=== PATIENT | male | born 1955 | race Caucasian/White ===

== ENCOUNTER 2017-04-09 03:20 | Inpatient (IN) | payer OTHER, MEDICARE ==
[2017-04-09] MEDS ORDERED: ASPIRIN 81 MG TABLET, CHEWABLE PO ONE (04:09)
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
[2017-04-09] MEDS ORDERED: NITROGLYCERIN 0.4 MG/TAB 25 TAB/BOTTLE SL ONE (04:12)
[2017-04-09] MEDS ORDERED: NITROGLYCERIN 2% OINTMENT 1 GM PACKET TP ONE (04:13)
[2017-04-09] MEDS ORDERED: ACETAMINOPHEN 325 MG TABLET PO ONE (04:14)
[2017-04-09 04:35] LABS: ALANINE AMINOTRANSFERASE 47 U/L (21-72); ALBUMIN 4.1 g/dL (3.5-5.0); ALKALINE PHOSPHATASE 50 U/L (38-126); ANION GAP 14 (5-19); ASPARTATE AMINO TRANSFERASE 32 U/L (17-59); BILIRUBIN,DIRECT 0.3 mg/dL (0.0-0.4); BILIRUBIN,TOTAL 0.5 mg/dL (0.2-1.3); BLOOD UREA NITROGEN 15 mg/dL (7-20); CARBON DIOXIDE 24 mmol/L (22-30); CHLORIDE 109 mmol/L (98-107); CREATINE KINASE 80 U/L (55-170); GLUCOSE 93 mg/dL (75-110); POTASSIUM 4.3 mmol/L (3.6-5.0); SODIUM 146.7 mmol/L (137-145); TOTAL PROTEIN 7.3 g/dL (6.3-8.2)
[2017-04-09] MEDS ORDERED: MORPHINE SULFATE 10 MG/ML INJ IV ONE (04:46)
--- NOTE | 2017-04-09 04:46 | RADIOLOGY REPORT (SQ) ---
EXAM DESCRIPTION: CHEST SINGLE VIEW COMPLETED DATE/TIME: 04/09/2017 4:28 am REASON FOR STUDY: chest pain COMPARISON: None. EXAM PARAMETERS: NUMBER OF VIEWS: One view. TECHNIQUE: Single frontal radiographic view of the chest acquired. RADIATION DOSE: NA LIMITATIONS: None. FINDINGS: LUNGS AND PLEURA: No consolidation, pneumothorax or pleural effusion. Hyperlucent lungs, suggestive of emphysema. MEDIASTINUM AND HILAR STRUCTURES: No masses. Contour normal. HEART AND VASCULAR STRUCTURES: The heart is upper normal limit in size. There is no overt vascular c ongestion. BONES: No acute findings. HARDWARE: Sternotomy wires are present. IMPRESSION: No consolidation or pleural effusion. Emphysema. TECHNICAL DOCUMENTATION: JOB ID: [id number] [employer]- All Rights Reserved
[2017-04-09 04:47] LABS: CREATINE KINASE MB 0.48 ng/mL (<4.55); TROPONIN I < 0.012 ng/mL
[2017-04-09 04:58] LABS: ABSOLUTE BASOPHILS # (AUTO) 0.1 10^3/uL (0.0-0.2); ABSOLUTE EOSINOPHILS # (AUTO) 0.2 10^3/uL (0.0-0.6); ABSOLUTE LYMPHOCYTES (AUTO) 2.1 10^3/uL (0.5-4.7); ABSOLUTE MONOCYTES (AUTO) 0.8 10^3/uL (0.1-1.4); ABSOLUTE NEUT (AUTO) 3.7 10^3/uL (1.7-8.2); BASOPHILS % (AUTO) 0.9 % (0-2); EOSINOPHILS % (AUTO) 3.6 % (0-6); HEMATOCRIT 44.8 % (37.9-51.0); HEMOGLOBIN 15.6 g/dL (13.5-17.0); LYMPHOCYTES % (AUTO) 30.1 % (13-45); MEAN CORPUSCULAR HEMOGLOBIN 32.9 pg (27.0-33.4); MEAN CORPUSCULAR HGB CONC 34.8 g/dL (32.0-36.0); MEAN CORPUSCULAR VOLUME 95 fl (80-97); MONOCYTES % (AUTO) 11.2 % (3-13); PLATELET COUNT 202 10^3/uL (150-450); RED BLOOD COUNT 4.74 10^6/uL (4.35-5.55); RED CELL DISTRIBUTION WIDTH 13.4 % (11.5-14.0); SEGMENTED NEUTROPHILS % (AUTO) 54.2 % (42-78); TOTAL CELLS COUNTED % (AUTO) 100 %; WHITE BLOOD COUNT 6.9 10^3/uL (4.0-10.5)
[2017-04-09] MEDS ORDERED: LIDOCAINE 2% VISCOUS SOLN 20 ML UDCUP PO ONE (05:22)
[2017-04-09] MEDS ORDERED: MAG HYDROX/AL HYDROX/SIMETH SUSP 30 ML UDCUP PO ONE (05:22)
[2017-04-09] MEDS ORDERED: LANSOPRAZOLE 15 MG TAB.RAP.DR PO ONE ×2 (06:14→13:00)
[2017-04-09] MEDS ORDERED: ONDANSETRON HCL INJ/PF 4 MG/2 ML SDV IV PRN (06:14)
[2017-04-09] MEDS ORDERED: LACTULOSE SYRUP 20 GM/30 ML UDCUP PO ONE (06:21)
[2017-04-09] MEDS: MORPHINE SULFATE 10 MG/ML INJ IV PRN ×4 (06:59→21:36)
--- NOTE | 2017-04-09 07:52 | PDOC H&P ---
History of Present Illness Admission Date/PCP: 04/09/17 05:28 ALLISON RIVERA MD History of Present Illness: ADRIAN ARNOLD is a 61 year old male with past medical history of coronary artery disease, hypertension, hyperlipidemia, hepatitis C, fatty liver disease, who reported to the emergency department with complaints of chest pain. He reported that he was having what felt like heartburn reminiscent of his prior LA last night from 1700 to approximately 2200. Patient reports he then took half an Ambien and was able to sleep, but was awoken from sleep by the same discomfort. He reports they checked his blood pressure and found it was elevated. He also reports some chest tightness over the last several days that goes through to his back and axilla. He reports that he did undergo a MRI of his left upper extremity which revealed pinched nerves. Patient reports that his pain was improved with a GI cocktail. He also reports it was improved with nitroglycerin. Patient denies any associated shortness of breath, diaphoresis, nausea, vomiting. Patient reports that he was previously on morphine as an outpatient for his chronic discomfort. He reports he is currently not taking any medication for this. He is referred to hospital service for evaluation of his chest pain Patient does not know his medications and did not bring a list. Due to the emergent nature of his condition, we will reconcile these at a later time. Past Medical History Cardiac Medical History: Reports: Coronary Artery Disease, Myocardial Infarction , Hyperlipidema, Hypertension Pulmonary Medical History: Reports: Chronic Obstructive Pulmonary Disease (COPD) EENT Medical History: Reports: Eyes - Glaucoma Neurological Medical History: Reports: Ischemic CVA GI Medical History: Reports: None Psychiatric Medical History: Reports: None Infectious Medical History: Reports: Hepatitis C Past Surgical History Past Surgical History: Reports: Coronary Artery Bypass Graft, Other - Back surgery Social History Lives with: Alone Smoking Status: Former Smoker Frequency of Alcohol Use: Rare Hx Recreational Drug Use: No Hx Prescription Drug Abuse: No - Advance Directive Resuscitation Status: Do Not Resuscitate Surrogate healthcare decision maker:: Keena Caldera, sister Family History Family History: CAD, CVA, DM, Hypertension, Malignancy, Other - Renal failure Parental Family History Reviewed: Yes Children Family History Reviewed: Yes Sibling(s) Family History Reviewed.: Yes Medication/Allergy Allergies/Adverse Reactions: No Known Allergies Allergy (Unverified 04/09/17 06:26) Review of Systems Constitutional: PRESENT: headache(s). ABSENT: chills, fever(s), weight gain, weight loss Eyes: PRESENT: visual disturbances Ears: ABSENT: hearing changes Cardiovascular: PRESENT: as per HPI, chest pain. ABSENT: dyspnea on exertion, edema, orthropnea, palpitations Respiratory: ABSENT: cough, dyspnea, hemoptysis, sputum, other Gastrointestinal: PRESENT: abdominal pain, bloating, constipation, nausea. ABSENT: diarrhea, hematemesis, hematochezia, melena, vomiting Genitourinary: PRESENT: nocturia. ABSENT: difficulty urinating, dysuria, hematuria Musculoskeletal: ABSENT: joint swelling Integumentary: ABSENT: rash, wounds Neurological: ABSENT: abnormal gait, abnormal speech, confusion, dizziness, focal weakness, syncope Psychiatric: ABSENT: anxiety, depression, homidical ideation, suicidal ideation Endocrine: ABSENT: cold intolerance, heat intolerance, polydipsia, polyuria Hematologic/Lymphatic: ABSENT: easy bleeding, easy bruising Physical Exam Vital Signs: Temp Pulse Resp BP Pulse Ox 97.7 F 68 20 164/105 H 97 04/09/17 03:41 04/09/17 03:41 04/09/17 06:01 04/09/17 06:01 04/09/17 06:01 General appearance: PRESENT: no acute distress, well-developed, well-nourished Head exam: PRESENT: atraumatic, normocephalic Eye exam: PRESENT: conjunctiva pink, EOMI, PERRLA. ABSENT: scleral icterus Ear exam: PRESENT: normal external ear exam Mouth exam: PRESENT: moist, tongue midline Neck exam: ABSENT: JVD, lymphadenopathy, thyromegaly, tracheal deviation Respiratory exam: PRESENT: chest wall tenderness, clear to auscultation renaldo, prolonged expiratory phas, symmetrical, unlabored. ABSENT: rales, rhonchi, wheezes Cardiovascular exam: PRESENT: RRR, +S1, +S2. ABSENT: diastolic murmur, gallop, rubs, systolic murmur Pulses: PRESENT: normal dorsalis pedis pul Vascular exam: PRESENT: normal capillary refill GI/Abdominal exam: PRESENT: hypoactive bowel sounds, soft. ABSENT: distended, firm, guarding, mass, Topete's sign, organolmegaly, rebound, tenderness Rectal exam: PRESENT: deferred Extremities exam: PRESENT: clubbing, full ROM, pedal edema - Trace to mid reyez. ABSENT: calf tenderness Neurological exam: PRESENT: alert, awake, oriented to person, oriented to place , oriented to time, oriented to situation, CN II-XII grossly intact. ABSENT: motor sensory deficit Psychiatric exam: PRESENT: depressed, flat affect. ABSENT: homicidal ideation, suicidal ideation Skin exam: PRESENT: dry, intact, warm. ABSENT: cyanosis, rash Results Laboratory Results: 04/09/17 04/09/17 04/09/17 03:30 03:30 03:30 WBC 6.9 Hgb 15.6 BUN 15 Creatinine 0.98 Troponin I < 0.012 EKG Comments: NSR Impressions: Chest X-Ray 04/09/17 04:09 IMPRESSION: No consolidation or pleural effusion. Emphysema. Status: Imported from PACS Assessment & Plan - Diagnosis (1) Chest pain Qualifiers: Chest pain type: unspecified Qualified Code(s): R07.9 - Chest pain, unspecified Is this a current diagnosis for this admission?: Yes Plan: Observe patient on telemetry for possible AMI. Most likely, this is indigestion and will also start patient on Prevacid. Place patient on morphine , nitroglycerin, aspirin, metoprolol, lisinopril, Lipitor, and oxygen. Obtain stress test. (2) Hypertension Qualifiers: Hypertension type: essential hypertension Qualified Code(s): I10 - Essential (primary) hypertension Is this a current diagnosis for this admission?: Yes Plan: Place patient on lisinopril and metoprolol (3) Musculoskeletal chest pain Is this a current diagnosis for this admission?: Yes Plan: Patient has chronic left upper extremity pain which has been progressive over the last year and a half. Patient has had an MRI as an outpatient he reports, and reports that he has nerve impingement in his neck. He is strongly advised to have this follow-up up on as an outpatient and as well as to pursue pain management. Will initiate patient on Neurontin (4) COPD (chronic obstructive pulmonary disease) Qualifiers: COPD type: emphysema Emphysema type: unspecified Qualified Code(s): J43.9 - Emphysema, unspecified Is this a current diagnosis for this admission?: Yes Plan: Continue to monitor - Time Time Spent: 50 to 70 Minutes Medications reviewed and adjusted accordingly: Yes Anticipated discharge: Home Within: within 48 hours - Inpatient Certification Based on my medical assessment, after consideration of the patient's comorbidities, presenting symptoms, or acuity I expect that the services needed warrant INPATIENT care.: No I certify that my determination is in accordance with my understanding of Medicare's requirements for reasonable and necessary INPATIENT services [42 CFR 412.3e].: No Post Hospital Care: D/C Brood Station Manager Documentation
[2017-04-09 07:54] LABS: CREATINE KINASE MB 0.52 ng/mL (<4.55)
[2017-04-09 07:59] LABS: TROPONIN I < 0.012 ng/mL
--- NOTE | 2017-04-09 08:17 | EKG REPORT ---
SEVERITY:- ABNORMAL ECG - SINUS RHYTHM PROBABLE LEFT ATRIAL ABNORMALITY CONSIDER ANTEROSEPTAL INFARCT BORDERLINE T ABNORMALITIES, INFERIOR LEADS : Confirmed by: Marcell Marinelli MD 09-Apr-2017 08:16:29
[2017-04-09] MEDS ORDERED: GABAPENTIN 300 MG CAPSULE PO SCH (10:00)
[2017-04-09] MEDS ORDERED: ASPIRIN 325 MG TABLET, ENT COATED PO SCH (10:00)
[2017-04-09] MEDS ORDERED: LISINOPRIL 10 MG TABLET PO SCH (10:00)
[2017-04-09] MEDS ORDERED: METOPROLOL SUCCINATE 25 MG TAB.SR.24H PO SCH (10:00)
[2017-04-09] MEDS: DOCUSATE SODIUM 100 MG CAPSULE PO SCH ×2 (10:02→17:18)
[2017-04-09] MEDS ORDERED: NITROGLYCERIN 2% OINTMENT 1 GM PACKET TP SCH (12:00)
[2017-04-09] MEDS ORDERED: HYDROCORTISONE ACETATE 25 MG SUPP.RECT PR PRN (13:01)
[2017-04-09] MEDS ORDERED: (PENDING PHARMACY ID) (Zolpidem Tartrate [Ambien] 10 MG) PO PRN (13:01)
[2017-04-09 13:52] LABS: CREATINE KINASE MB 0.78 ng/mL (<4.55)
[2017-04-09 14:16] LABS: TROPONIN I < 0.012 ng/mL
[2017-04-09] MEDS ORDERED: ZOLPIDEM TARTRATE 5 MG TABLET PO PRN (14:23)
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
[2017-04-09] MEDS ORDERED: ISOSORBIDE MONONITRATE 30 MG TAB.ER.24H PO ONE (15:00)
[2017-04-09] MEDS: POLYVINYL ALCOHOL 1.4% OPH SOLN 15 ML OU SCH ×3 (17:18→21:31)
[2017-04-09] MEDS: LANSOPRAZOLE 15 MG TAB.RAP.DR PO SCH (17:19)
[2017-04-09 20:25] LABS: CREATINE KINASE MB 1.07 ng/mL (<4.55)
[2017-04-09 20:28] LABS: TROPONIN I < 0.012 ng/mL
[2017-04-09] MEDS: DORZOLAMIDE HCL 2%/TIMOLOL MALEAT 0.5% OPH SOLN 10 ML OS SCH (21:32)
[2017-04-09] MEDS: GABAPENTIN 300 MG CAPSULE PO SCH (21:34)
[2017-04-09] MEDS: ATORVASTATIN CALCIUM 20 MG TABLET PO SCH (21:34)
[2017-04-09] MEDS: LISINOPRIL 10 MG TABLET PO SCH (21:35)
[2017-04-09] MEDS: HYDROXYZINE HCL 10 MG TABLET PO SCH (21:47)
[2017-04-09] MEDS: CARBOXYMETHYLCELLULOSE SOD 0.5% 0.4 ML DROPERETTE OU SCH (21:47)
[2017-04-09] MEDS ORDERED: ATORVASTATIN CALCIUM 80 MG TABLET PO SCH (22:00)
[2017-04-09] MEDS ORDERED: ATORVASTATIN CALCIUM 40 MG TABLET PO SCH (22:00)
[2017-04-10] MEDS ORDERED: ACETAMINOPHEN 325 MG TABLET PO PRN (03:39)
[2017-04-10] MEDS ORDERED: KETOROLAC TROMETHAMINE INJ/PF 30 MG/1 ML SDV IV ONE (03:45)
[2017-04-10] MEDS ORDERED: NORMAL SALINE 1000 ML 1,000 ML IV ONE ×2 (03:45→06:15)
[2017-04-10] MEDS: LANSOPRAZOLE 15 MG TAB.RAP.DR PO SCH ×2 (05:12→16:58)
[2017-04-10] MEDS: GABAPENTIN 300 MG CAPSULE PO SCH ×3 (05:12→21:19)
[2017-04-10 07:52] LABS: CHOLESTEROL 82.17 mg/dL (0-200); TRIGLYCERIDES 174 mg/dL (<150)
[2017-04-10 08:03] LABS: DIRECT LDL 40 mg/dL (<100)
[2017-04-10 08:06] LABS: VLDL CHOLESTEROL 34.8 mg/dL (10-31)
[2017-04-10] MEDS ORDERED: (PENDING PHARMACY ID) (Omega-3 Fatty Acids/Fish Oil [Fish Oil 1,000 Mg Capsule] 1,000 MG) PO SCH (10:00)
[2017-04-10] MEDS: ASPIRIN 81 MG TABLET, CHEWABLE PO SCH (10:40)
[2017-04-10] MEDS: DOCUSATE SODIUM 100 MG CAPSULE PO SCH ×2 (10:40→16:42)
[2017-04-10] MEDS: POLYVINYL ALCOHOL 1.4% OPH SOLN 15 ML OU SCH ×4 (10:40→21:19)
[2017-04-10] MEDS: OMEGA-3 ACID ETHYL ESTERS 1 GM CAPSULE PO SCH (10:41)
[2017-04-10] MEDS: HYDROXYZINE HCL 10 MG TABLET PO SCH ×2 (10:41→21:19)
[2017-04-10] MEDS: MULTIVITAMIN TABLET PO SCH (10:41)
[2017-04-10] MEDS: DORZOLAMIDE HCL 2%/TIMOLOL MALEAT 0.5% OPH SOLN 10 ML OS SCH ×2 (10:42→21:20)
[2017-04-10] MEDS: ISOSORBIDE MONONITRATE 30 MG TAB.ER.24H PO SCH (10:45)
[2017-04-10] MEDS: LISINOPRIL 10 MG TABLET PO SCH ×2 (10:45→21:20)
[2017-04-10] MEDS: CARBOXYMETHYLCELLULOSE SOD 0.5% 0.4 ML DROPERETTE OU SCH (10:45)
[2017-04-10] MEDS: METOPROLOL SUCCINATE 50 MG TAB.SR.24H PO SCH (10:45)
[2017-04-10] MEDS ORDERED: REGADENOSON INJ 0.4 MG/5 ML DISP.SYRIN IV ONE (14:14)
[2017-04-10] MEDS ORDERED: NORMAL SALINE 1000 ML 1,000 ML IV PRN (15:07)
[2017-04-10] MEDS ORDERED: ONDANSETRON HCL INJ/PF 4 MG/2 ML SDV IV PRN (15:30)
--- NOTE | 2017-04-10 16:04 | PROGRESS NOTE E ---
Progress Note NAME: ADRIAN ARNOLD : 1955 AGE: 61Y DATE: 04/10/2017 ROOM: 529 SUBJECTIVE: The patient is currently lying in bed, apparently overnight the patient had developed diarrhea and subsequent hypotension. The patient did receive a 2L bolus overnight and did have some improvement in his blood pressure, however, his chemistries were pretty unremarkable. The patient states that he has not felt very well since [place] and that this is his first bout of diarrhea. The patient denies any sick contacts as well. The patient has had no reported episodes of vomiting. No shortness of breath, dizziness, chest pain. No fevers, chills. The patient has been afebrile. His blood pressures have been on the soft side and the patient does not voice any other concerns at this time. REVIEW OF SYSTEMS: The rest of the review of systems is negative. MEDICATIONS: Have been reviewed. OBJECTIVE: GENERAL: The patient is a 61-year-old male who is awake, alert. He is oriented to person, time, place, and situation. He does not appear to be in any acute distress. VITAL SIGNS: Temperature is 98.2, pulse 65, respirations 14, blood pressure was 90/66, oxygen saturation 94% on room air. SKIN: Warm and dry. No rash. He is not diaphoretic. HEENT: Pupils, equal, round and reactive to light and accommodation. Conjunctivae are pink. NECK: No JVP. CARDIOVASCULAR: Heart is regular. There is no murmur or rub. CHEST: Clear, symmetrical, unlabored. ABDOMEN: Soft, nontender, nondistended. BACK: No CVA tenderness, sacral edema. EXTREMITIES: No clubbing, cyanosis, or edema. PSYCHIATRIC: Appropriate affect, pleasant mood. DIAGNOSTICS: Lab values are as follows; chemistry obtained on 04/10/2017; triglycerides of 174, cholesterol is 82, LDL 40, VLDL was 34, HDL is 21. CK 77, CK-MB is 1.07, troponin is 0.012. IMPRESSION AND PLAN: 1. DIARRHEA. Will obtain stool studies and also start the patient on probiotic therapy. Additionally encourage a yogurt with each meal and will follow. 2. HYPOTENSION. Most likely secondary to #1. Will replace volume and repeat chemistries in the a.m. and follow. 3. DYSLIPIDEMIA. Will continue her medication. 4. HYPERTRIGLYCERIDEMIA. 5. CHRONIC PAIN SECONDARY TO TRAUMATIC INJURY. Will continue current pain regimen. 6. CHEST PAIN. The patient has had no further reoccurrence. The patient did have a stress test which did reveal a fixed defect consistent with scarring from previous [place]. The patient does have a known CAD. 7. HYPERTENSION. The patient is actually currently hypotensive. 8. CHRONIC OBSTRUCTIVE PULMONARY DISEASE. Will continue home medication. 9. HEPATITIS C. The patient does not need the treatment. CODE STATUS: The patient is a DNR/DNI. DISPOSITION: Depending on the patient's symptomatology and diagnostic findings will reevaluate in the a.m. for discharge. TIME SPENT: On this follow up, including assessment and plan, physical examination, patient education is 25 minutes. DICTATING PHYSICIAN: HENRIETTA ORTA NP [id number] PHY#: [id number] ID: [id number] JOB#: [id number] ACCT: [id number] cc: >
[2017-04-10] MEDS: LACTOBACILLUS ACIDOPHILUS 250 MG TAB PO SCH (16:58)
[2017-04-10] MEDS: 1/2 NORMAL SALINE 1,000 ML IV PRN (16:58)
[2017-04-10] MEDS: ATORVASTATIN CALCIUM 20 MG TABLET PO SCH (21:19)
[2017-04-10] MEDS: KETOROLAC TROMETHAMINE INJ/PF 30 MG/1 ML SDV IV PRN (21:21)
[2017-04-11 05:27] LABS: HEMATOCRIT 41.8 % (37.9-51.0); HEMOGLOBIN 14.6 g/dL (13.5-17.0); MEAN CORPUSCULAR HEMOGLOBIN 32.7 pg (27.0-33.4); MEAN CORPUSCULAR HGB CONC 34.9 g/dL (32.0-36.0); MEAN CORPUSCULAR VOLUME 94 fl (80-97); PLATELET COUNT 160 10^3/uL (150-450); RED BLOOD COUNT 4.46 10^6/uL (4.35-5.55); RED CELL DISTRIBUTION WIDTH 13.1 % (11.5-14.0); WHITE BLOOD COUNT 6.8 10^3/uL (4.0-10.5)
[2017-04-11] MEDS: LANSOPRAZOLE 15 MG TAB.RAP.DR PO SCH ×2 (05:41→16:17)
[2017-04-11] MEDS: GABAPENTIN 300 MG CAPSULE PO SCH ×3 (05:41→21:01)
[2017-04-11] MEDS: KETOROLAC TROMETHAMINE INJ/PF 30 MG/1 ML SDV IV PRN ×3 (05:41→21:15)
[2017-04-11 05:55] LABS: ANION GAP 10 (5-19); BLOOD UREA NITROGEN 15 mg/dL (7-20); CALCIUM 8.9 mg/dL (8.4-10.2); CARBON DIOXIDE 23 mmol/L (22-30); CHLORIDE 110 mmol/L (98-107); GLUCOSE 92 mg/dL (75-110); MAGNESIUM 1.9 mg/dL (1.6-2.3); POTASSIUM 4.4 mmol/L (3.6-5.0); SODIUM 143.4 mmol/L (137-145)
[2017-04-11] MEDS: 1/2 NORMAL SALINE 1,000 ML IV PRN (09:34)
[2017-04-11] MEDS: DOCUSATE SODIUM 100 MG CAPSULE PO SCH ×2 (09:34→18:57)
[2017-04-11] MEDS: OMEGA-3 ACID ETHYL ESTERS 1 GM CAPSULE PO SCH (09:34)
[2017-04-11] MEDS: ISOSORBIDE MONONITRATE 30 MG TAB.ER.24H PO SCH (09:34)
[2017-04-11] MEDS: LACTOBACILLUS ACIDOPHILUS 250 MG TAB PO SCH ×2 (09:35→18:58)
[2017-04-11] MEDS: MULTIVITAMIN TABLET PO SCH (09:35)
[2017-04-11] MEDS: ASPIRIN 81 MG TABLET, CHEWABLE PO SCH (09:35)
[2017-04-11] MEDS: DORZOLAMIDE HCL 2%/TIMOLOL MALEAT 0.5% OPH SOLN 10 ML OS SCH ×2 (09:36→21:01)
[2017-04-11] MEDS: HYDROXYZINE HCL 10 MG TABLET PO SCH ×2 (09:36→21:03)
[2017-04-11] MEDS: POLYVINYL ALCOHOL 1.4% OPH SOLN 15 ML OU SCH ×4 (09:36→23:44)
[2017-04-11] MEDS: METOPROLOL SUCCINATE 50 MG TAB.SR.24H PO SCH (09:47)
[2017-04-11] MEDS: LISINOPRIL 10 MG TABLET PO SCH ×2 (12:53→21:01)
--- NOTE | 2017-04-11 14:58 | RADIOLOGY REPORT (SQ) ---
EXAM DESCRIPTION: KUB/ABDOMEN (SINGLE VIEW) COMPLETED DATE/TIME: 04/11/2017 2:34 pm REASON FOR STUDY: r/o obstruction COMPARISON: None. NUMBER OF VIEWS: One view. TECHNIQUE: Supine radiographic image of the abdomen acquired. LIMITATIONS: None. FINDINGS: BOWEL GAS PATTERN: Relative paucity of bowel gas. No dilated loops. Large amount of stoo l throughout the colon. CALCIFICATIONS: No suspicious calcifications. SOFT TISSUES: No gross mass or suggestion of organomegaly. HARDWARE: None in the abdomen. BONES: No acute fracture. No worrisome bone lesions. OTHER: No other significant finding. IMPRESSION: NO RADIOGRAPHIC EVIDENCE FOR ACUTE ABDOMINAL DISEASE. LARGE AMOUNT OF STOOL THROUGHOUT THE COLON. TECHNICAL DOCUMENTATION: JOB ID: [id number] [employer]- All Rights Reserved
--- NOTE | 2017-04-11 15:38 | PDOC PROGRESS REPORT ---
Subjective Progress Note for:: 04/11/17 Subjective:: Patient seen in the chair denies any nausea vomiting but states he has only had one bowel movement in the last 2 months. Abdomen is quite distended and firm denies any chest pain, shortness of breath, diaphoresis. Reason For Visit: CHEST PAIN Physical Exam Vital Signs: Temp Pulse Resp BP Pulse Ox 97.8 F 86 17 152/89 H 98 04/11/17 11:36 04/11/17 14:00 04/11/17 11:36 04/11/17 11:36 04/11/17 11:36 Intake & Output 04/10/17 04/11/17 04/12/17 06:59 06:59 06:59 Intake Total 1010 839 Output Total 650 Balance 1010 189 Weight 75.5 kg General appearance: PRESENT: no acute distress, well-developed, well-nourished Head exam: PRESENT: atraumatic, normocephalic Eye exam: PRESENT: PERRLA Ear exam: PRESENT: normal external ear exam Mouth exam: PRESENT: moist, tongue midline Neck exam: ABSENT: carotid bruit, JVD, lymphadenopathy, thyromegaly Respiratory exam: PRESENT: clear to auscultation renaldo. ABSENT: rales, rhonchi, wheezes Cardiovascular exam: PRESENT: RRR. ABSENT: diastolic murmur, rubs, systolic murmur Pulses: PRESENT: normal dorsalis pedis pul GI/Abdominal exam: PRESENT: diminished bowel sounds, distended, tenderness Rectal exam: PRESENT: deferred Extremities exam: PRESENT: full ROM. ABSENT: calf tenderness, clubbing, pedal edema Neurological exam: PRESENT: alert, awake, oriented to person, oriented to place , oriented to time, oriented to situation, CN II-XII grossly intact. ABSENT: motor sensory deficit Psychiatric exam: PRESENT: appropriate affect, normal mood. ABSENT: homicidal ideation, suicidal ideation Skin exam: PRESENT: dry, intact, warm. ABSENT: cyanosis, rash Results Laboratory Results: 04/11/17 04:25 04/11/17 04:25 04/11/17 04/11/17 04:25 04:25 WBC 6.8 RBC 4.46 Hgb 14.6 Hct 41.8 MCV 94 MCH 32.7 MCHC 34.9 RDW 13.1 Plt Count 160 Sodium 143.4 Potassium 4.4 Chloride 110 H Carbon Dioxide 23 Anion Gap 10 BUN 15 Creatinine 1.01 Est GFR ( Amer) > 60 Est GFR (Non-Af Amer) > 60 Glucose 92 Calcium 8.9 Magnesium 1.9 04/09/17 04/09/17 04/09/17 06:30 06:30 07:30 Creatine Kinase 77 CK-MB (CK-2) 0.52 Troponin I < 0.012 Cancelled 04/09/17 04/09/17 12:45 19:36 Creatine Kinase CK-MB (CK-2) 0.78 1.07 Troponin I < 0.012 < 0.012 Impressions: Chest X-Ray 04/09/17 04:09 IMPRESSION: No consolidation or pleural effusion. Emphysema. KUB X-Ray 04/11/17 00:00 IMPRESSION: NO RADIOGRAPHIC EVIDENCE FOR ACUTE ABDOMINAL DISEASE. LARGE AMOUNT OF STOOL THROUGHOUT THE COLON. Assessment & Plan - Diagnosis (1) Abdominal pain in male Is this a current diagnosis for this admission?: Yes Plan: Obtain a KUB to rule out bowel obstruction with hypoactive bowel sounds abdominal distention. Patient had nausea without vomiting yesterday. I will downgrade his diet to clear liquids for now. KUB came back positive for large amount of stool. Patient was given 1 bottle of magnesium citrate now continue clear liquids until patient has good results with bowel movements. Change in patient's status. (2) Constipation Qualifiers: Constipation type: unspecified constipation type Qualified Code(s): K59.00 - Constipation, unspecified Is this a current diagnosis for this admission?: Yes Plan: Hold discharge for now. Plan bowel regimen per above. Monitor in a.m. if patient has good results with bowel movements consider discharge home tomorrow.
[2017-04-11] MEDS ORDERED: MAGNESIUM CITRATE 296 ML BOTTLE PO ONE (16:00)
[2017-04-11] MEDS: ATORVASTATIN CALCIUM 20 MG TABLET PO SCH (21:01)
[2017-04-12] MEDS: GABAPENTIN 300 MG CAPSULE PO SCH ×2 (05:51→14:08)
[2017-04-12] MEDS: LANSOPRAZOLE 15 MG TAB.RAP.DR PO SCH (05:51)
[2017-04-12] MEDS: KETOROLAC TROMETHAMINE INJ/PF 30 MG/1 ML SDV IV PRN (05:51)
[2017-04-12] MEDS: LACTOBACILLUS ACIDOPHILUS 250 MG TAB PO SCH (09:50)
[2017-04-12] MEDS: ISOSORBIDE MONONITRATE 30 MG TAB.ER.24H PO SCH (09:50)
[2017-04-12] MEDS: OMEGA-3 ACID ETHYL ESTERS 1 GM CAPSULE PO SCH (09:50)
[2017-04-12] MEDS: ASPIRIN 81 MG TABLET, CHEWABLE PO SCH (09:50)
[2017-04-12] MEDS: MULTIVITAMIN TABLET PO SCH (09:50)
[2017-04-12] MEDS: HYDROXYZINE HCL 10 MG TABLET PO SCH (09:50)
[2017-04-12] MEDS: METOPROLOL SUCCINATE 50 MG TAB.SR.24H PO SCH (09:50)
[2017-04-12] MEDS: POLYVINYL ALCOHOL 1.4% OPH SOLN 15 ML OU SCH ×2 (09:50→14:09)
[2017-04-12] MEDS: DORZOLAMIDE HCL 2%/TIMOLOL MALEAT 0.5% OPH SOLN 10 ML OS SCH (09:50)
[2017-04-12] MEDS: DOCUSATE SODIUM 100 MG CAPSULE PO SCH (09:50)
--- NOTE | 2017-04-12 12:08 | PDOC DISCHARGE SUMMARY ---
General - Admit/Disc Date/PCP Admission Date/Primary Care Provider: 04/11/17 15:22 ALLISON RIVERA MD Discharge Date: 04/12/17 - Discharge Diagnosis (1) Abdominal pain in male Is this a current diagnosis for this admission?: Yes (2) Constipation Is this a current diagnosis for this admission?: Yes (3) COPD (chronic obstructive pulmonary disease) Is this a current diagnosis for this admission?: Yes (4) Hypertension Is this a current diagnosis for this admission?: Yes (5) Musculoskeletal chest pain Is this a current diagnosis for this admission?: Yes (6) Chest pain Is this a current diagnosis for this admission?: Yes Summary: Negative stress test negative troponins patient denies having any further chest pain or episodes. He was placed on a proton pump inhibitor with good results. We did have to monitor his abdomen KUB was negative for acute abdomen or small bowel obstruction - Additional Information Resuscitation Status: Do Not Resuscitate Discharge Diet: As Tolerated Discharge Activity: Activity As Tolerated Home Medications: Hydrocortisone Acetate [Anusol Hc 25 mg Supp.rect] 25 mg VT DAILYP PRN 04/09/17 Hydroxyzine HCl [Atarax 10 mg Tablet] 10 mg PO Q12 04/09/17 Isosorbide Mononitrate [Isosorbide Mononitrate ER] 30 mg PO DAILY 04/09/17 Metoprolol Succinate [Toprol XL 100 mg Tablet] 50 mg PO DAILY 04/09/17 Multivitamin [Daily Multiple Vitamin] 1 tab PO DAILY 04/09/17 [place]-3 Fatty Acids/Fish Oil [Fish Oil 1,000 mg Capsule] 1,000 mg PO DAILY 04/09 Aspirin [Aspirin 81 mg Chewable Tablet] 81 mg PO DAILY #30 tab 04/12/17 Atorvastatin Calcium [Lipitor 40 mg Tablet] 20 mg PO QHS #30 04/12/17 Dextran 70/Hypromellose [Artificial Tears Drops] 1 drop OU QID #1 bottle Docusate Sodium [Colace 100 mg Capsule] 100 mg PO BID #60 capsule 04/12/17 Dorzolamide HCl/Timolol Maleat [Cosopt Oph Soln 10 ml] 1 drop OS Q12 #1 bot 06/28 Lisinopril [Prinivil 10 mg Tablet] 20 mg PO Q12 #30 tablet 12/02/17 Polyethylene Glycol 3350 [Miralax Powder 17 gm/Packet] 1 packet PO DAILY #1 pkg 04/12/17 History of Present Illness Patient complains of: Chest pain History of Present Illness: ADRIAN ARNOLD is a 61 year old male admitted with chest pain. Past medical history includes coronary artery disease hypertension, dyslipidemia, otitis C, fatty liver disease, patient had a normal stress test and a normal troponins. Patient also complaining of abdominal distention with his nausea. KUB was obtained to rule out mass or malignancy however it revealed large amounts of stool that he was given a bottle of magnesium Site-[employer] stool softener with very good results. Patient was medically necessary to go home with a GI consult to have a colonoscopy evaluation of his constipation. Physical Exam Vital Signs: Temp Pulse Resp BP Pulse Ox 98.4 F 78 18 98/63 L 94 04/12/17 08:07 04/12/17 08:07 04/12/17 08:07 04/12/17 08:07 04/12/17 08:07 Intake & Output 04/11/17 04/12/17 04/13/17 06:59 06:59 06:59 Intake Total 4035 Output Total 1500 Balance 2535 Weight 79.8 kg General appearance: PRESENT: no acute distress, well-developed, well-nourished Head exam: PRESENT: atraumatic, normocephalic Eye exam: PRESENT: conjunctiva pink, EOMI, PERRLA. ABSENT: scleral icterus Ear exam: PRESENT: normal external ear exam Mouth exam: PRESENT: moist, tongue midline Neck exam: ABSENT: carotid bruit, JVD, lymphadenopathy, thyromegaly Respiratory exam: PRESENT: clear to auscultation renaldo. ABSENT: rales, rhonchi, wheezes Cardiovascular exam: PRESENT: RRR. ABSENT: diastolic murmur, rubs, systolic murmur Pulses: PRESENT: normal dorsalis pedis pul Vascular exam: PRESENT: normal capillary refill GI/Abdominal exam: PRESENT: normal bowel sounds, soft. ABSENT: distended, guarding, mass, organolmegaly, rebound, tenderness Rectal exam: PRESENT: deferred Extremities exam: PRESENT: full ROM. ABSENT: calf tenderness, clubbing, pedal edema Neurological exam: PRESENT: alert, awake, oriented to person, oriented to place , oriented to time, oriented to situation, CN II-XII grossly intact. ABSENT: motor sensory deficit Psychiatric exam: PRESENT: appropriate affect, normal mood. ABSENT: homicidal ideation, suicidal ideation Skin exam: PRESENT: dry, intact, warm. ABSENT: cyanosis, rash Results Impressions: Chest X-Ray 04/09/17 04:09 IMPRESSION: No consolidation or pleural effusion. Emphysema. KUB X-Ray 04/11/17 00:00 IMPRESSION: NO RADIOGRAPHIC EVIDENCE FOR ACUTE ABDOMINAL DISEASE. LARGE AMOUNT OF STOOL THROUGHOUT THE COLON. Plan Time Spent: Less than 30 Minutes - Plan follow-up with primary care and gastroenterology outpatient. He may also follow-up with cardiology as necessary
[2017-04-12 12:16] VITALS: BP 128/89
[2017-04-12] MEDS: LISINOPRIL 10 MG TABLET PO SCH (12:30)
--- NOTE | 2017-04-12 15:38 | DRAGON STRESS TEST REPORT ---
Intravenous Lexiscan Cardiolite stress test using single photon emmision computerized tomography. Date of procedure: 04/10/2017. Ordering Provider: Dr. Mac. Patient's status: In Patient Indication: Chest pain, in a patient with known coronary artery disease, and history of three-vessel coronary artery bypass graft surgery. And history of old [place]. Coronary risk factors: Age, hypertension, dyslipidemia, and family history of coronary artery disease. Note due to severe pain and unable to tolerate lifting his left arm hence the scan was done with the left arm by the side. Resting EKG: Sinus Rhythm. Nonspecific T changes diffusely Stress EKG:[ No changes of ischemia. The patient had no chest pain or discomfort, and there was no arrhythmias seen. Reason for termination: Protocol. Conclusions: Normal EKG and hemodynamic response to IV Lexiscan. Nuclear data: At rest the patient was given 10.78 millicuries of technetium 99m sestamibi injected intravenously. As per protocol rest non gated SPECT images were obtained. Subsequently the patient was given intravenous Lexiscan at a dose of 0.4 mg in 5 mL intravenously, followed by flush with normal saline. Subsequently the stress dose of 33.4 millicuries of technetium 99m sestamibi was injected intravenously. As per protocol stress gated images were obtained. Nuclear interpretation: Review of images showed that there was a perfusion defect involving the intraventricular septum in both the rest and stress images. This area of the interventricular septum had decreased motion contraction and thickening the gated study. Hence this is consistent with old myocardial infarction. The rest of the segments of the myocardium had normal perfusion at rest, and normal perfusion post stress with IV Lexiscan. The rest of the segments of the myocardium had normal motion, contraction, and thickening by gated study. T. I D. ratio was normal at 0.87. Computer read rest, and stress left ventricular ejection fraction were 64 %, and 64 %, respectively. Conclusion: 1. There is no scintigraphic evidence of Lexiscan induced myocardial ischemia. 2. There is scintigraphic evidence of myocardial infarction/scar involving the interventricular septum. Recommendations: 1. Aggressive treatment of coronary artery disease with beta blockers, aspirin , statins and nitrates if no allergies. 2. Aggressive risk factor modification, and treating the underlying co- morbidities. [facility]
== END 2017-04-12 14:25 | disposition home or self-care (01) | DRG 392 ==
LOC: ER 03:20 → EH 05:28 → 5 12:13 → OBSVTOIN 04-11 15:22
PROVIDERS: ADMIT Family Medicine; ATTEND Family Medicine
DX: K59.00 Constipation, unspecified (principal); J43.9 Emphysema, unspecified; R07.9 Chest pain, unspecified; I10 Essential (primary) hypertension; G89.29 Other chronic pain; I25.10 Atherosclerotic heart disease of native coronary artery without angina pectoris; E78.5 Hyperlipidemia, unspecified; K76.0 Fatty (change of) liver, not elsewhere classified; Z95.1 Presence of aortocoronary bypass graft; M79.2 Neuralgia and neuritis, unspecified; E78.1 Pure hyperglyceridemia; I95.9 Hypotension, unspecified; R19.7 Diarrhea, unspecified; G58.9 Mononeuropathy, unspecified; I25.2 Old myocardial infarction; Z87.891 Personal history of nicotine dependence; Z82.49 Family history of ischemic heart disease and other diseases of the circulatory system; H40.9 Unspecified glaucoma; Z86.73 Personal history of transient ischemic attack (TIA), and cerebral infarction without residual deficits; Z86.19 Personal history of other infectious and parasitic diseases; Z66 Do not resuscitate; Z83.3 Family history of diabetes mellitus; Z80.9 Family history of malignant neoplasm, unspecified; Z87.820 Personal history of traumatic brain injury
CPT/HCPCS: 36415; 71010; 74000; 78452; 80048; 80053; 80061; 82550; 82553; 83735; 84484; 85025; 85027; 87493; 93005; 93010; 93017; 96374; 96376; 99285; A9500; G0378; J1885; J2270; J2405; J2785; J3490; J7030; Q9969

== ENCOUNTER 2017-07-22 11:38 | Emergency (ER) | payer OTHER, MEDICARE ==
--- NOTE | 2017-07-22 11:55 | ER Document Report ---
ED Cardiac - General Chief Complaint: Chest Pain > 30 Stated Complaint: CHEST PAIN Time Seen by Provider: 07/22/17 11:46 Notes: The patient is a 62-year-old male, past medical history hypertension, CAD with stents, depression, "pinched nerves", [facility] with [facility] pain. He describes the chest pain as a sharp intermittent stabbing sensation in the left side of his chest. His last stress test was about 2 months ago for similar pain and his last heart cath was 2 years ago when he had a CABG. His music artist told him that his sharp chest pain was from a pinched nerve and he frequently has this pain. He received the CT head and neck as an outpatient from the [facility] last week and just picked up the results. He has a copy of the results and shows a possible thrombus in his left carotid artery. CTA is recommended. Patient does have some mild left-sided neck pain and a dull left- sided headache that he has had for several weeks. He denies focal weakness, numbness, tingling, shortness of breath, back pain, syncope, leg swelling, hemoptysis, fevers or rash. TRAVEL OUTSIDE OF THE [place] IN LAST 30 DAYS: No - Related Data Allergies/Adverse Reactions: No Known Allergies Allergy (Unverified 04/09/17 06:26) Past Medical History - General Information source: Patient - Social History Smoking Status: Unknown if Ever Smoked Family History: CAD, CVA, DM, Hypertension, Malignancy, Other - Renal failure - Past Medical History Cardiac Medical History: Reports: Hx Coronary Artery Disease, Hx Heart Attack, Hx Hypercholesterolemia, Hx Hypertension Pulmonary Medical History: Reports: Hx COPD Renal/ Medical History: Denies: Hx Peritoneal Dialysis Psychiatric Medical History: Reports: Hx Depression Past Surgical History: Reports: Hx Cardiac Surgery - bypass, Hx Coronary Artery Bypass Graft, Other - Back surgery Review of Systems - Review of Systems Notes: REVIEW OF SYSTEMS: CONSTITUTIONAL: -fevers, -chills EENT: -eye pain, -difficulty swallowing, -nasal congestion CARDIOVASCULAR: +chest pain, -syncope. RESPIRATORY: -cough, -SOB GASTROINTESTINAL: -abdominal pain, -nausea, -vomiting, -diarrhea GENITOURINARY: -dysuria, -hematuria MUSCULOSKELETAL: -back pain, +neck pain SKIN: -rash or skin lesions. HEMATOLOGIC: -easy bruising or bleeding. LYMPHATIC: -swollen, enlarged glands. NEUROLOGICAL: -altered mental status or loss of consciousness, +headache, - neurologic symptoms PSYCHIATRIC: -anxiety, -depression. ALL OTHER SYSTEMS REVIEWED AND NEGATIVE. Physical Exam - Vital signs Vitals: Temp Pulse Resp BP Pulse Ox 97.9 F 62 17 141/102 H 98 07/22/17 14:02 07/22/17 14:02 07/22/17 14:02 07/22/17 14:02 07/22/17 14:02 - Notes Notes: PHYSICAL EXAMINATION: GENERAL: Well-appearing, well-nourished and in no acute distress. HEAD: Atraumatic, normocephalic. EYES: Pupils equal round and reactive to light, extraocular movements intact, sclera anicteric, conjunctiva are normal. ENT: nares patent, oropharynx clear without exudates. Moist mucous membranes. NECK: Normal range of motion, supple without lymphadenopathy LUNGS: Breath sounds clear to auscultation bilaterally and equal. No wheezes rales or rhonchi. HEART: Regular rate and rhythm without murmurs ABDOMEN: Soft, nontender, normoactive bowel sounds. No guarding, no rebound. No masses appreciated. EXTREMITIES: Normal range of motion, no pitting or edema. No cyanosis. NEUROLOGICAL: Cranial nerves grossly intact. Normal speech, normal gait. Normal sensory and motor exams. PSYCH: Normal mood, normal affect. SKIN: Warm, Dry, normal turgor, no rashes or lesions noted. Course - Re-evaluation Re-evalutation: Patient has sharp stabbing pain that appears neuropathic in nature. His last stress test for similar pain was 2 months ago and he was told was normal. His EKG does not show any ischemic changes and 2 sets of troponins are normal. HEART score is 3 (1 for age, 2 for risk factors). CTA was done because of an outpatient non-contrast CT shows a possible thrombus in his left carotid/IJ. CTA does not show any acute thrombi. Patient feels much better and has not had chest pain or headache. Patient commented that for this chest pain in the past , he has seen pain management and had a spinal nerve block which completely relieved his pain. Instructed patient to follow-up with his primary care physician, music artist and pain management for further evaluation and treatment. Given very strict return precautions and he understands. - Vital Signs Vital signs: Temp Pulse Resp BP Pulse Ox 97.9 F 62 17 141/102 H 98 07/22/17 14:02 07/22/17 14:02 07/22/17 14:02 07/22/17 14:02 07/22/17 14:02 - Laboratory Result Diagrams: 07/22/17 11:18 07/22/17 11:18 - Diagnostic Test Radiology reviewed: Image reviewed, Reports reviewed Radiology results interpreted by me: CXR: NAD - EKG Interpretation by Me EKG shows normal: Sinus rhythm, [place], Intervals, QRS Complexes When compared to previous EKG there are: No significant change Additional EKG results interpreted by me: No STEMI Discharge - Discharge Clinical Impression: Chest pain Qualifiers: Chest pain type: unspecified Qualified Code(s): R07.9 - Chest pain, unspecified Headache Qualifiers: Headache type: unspecified Headache chronicity pattern: chronic headache Intractability: not intractable Qualified Code(s): R51 - Headache Condition: Stable Disposition: HOME, SELF-CARE Additional Instructions: CHEST PAIN OF UNCLEAR CAUSE: The exact cause of your chest pain isn't clear. Fortunately, there is no evidence of a dangerous medical condition. Further testing may be required to find the source of the pain. Most often, we find that this pain is coming from the chest wall -- the muscles or rib joints in the chest. But chest pain can come from the lung and lung lining, the esophagus, the heart valves or heart lining, and even the stomach or gallbladder. Rest. Eat lightly until the pain is gone. We may prescribe medicine for pain and inflammation. You should call the physician immediately if the pain radiates to the shoulder, jaw or arms; if you start to run a fever or develop a cough; or if you develop shortness of breath, or other new or alarming symptoms. NORMAL EXAM AND WORKUP: At this time, your examination and workup show no significant abnormality. No significant abnormal physical findings were noted. All laboratory, EKG, and imaging (x-ray, CT scans, ultrasound) studies that were ordered show no significant abnormality. Although your examination and all studies that were ordered showed no significant abnormal finding, there are no examinations and no studies that are 100% accurate. There is always the possibility that some abnormality could exist and not be detected with physical examination or within the limits and capabilities of laboratory and other studies. You should return or follow up as you were instructed on your visit today for further evaluation if your symptoms do not resolve. CHEST WALL PAIN: Your chest pain may be coming from the chest wall. This is often caused by straining the muscles or joints in the chest during physical activity, direct trauma, coughing, or vigorous vomiting. Persons with arthritis are especially prone to this type of pain, due to inflammation of the cartilage joints near the breast bone. Occasionally, no cause can be found. Rest from strenuous physical activity. This kind of chest pain is usually made worse by movement of the chest. Depending on the symptoms, we may prescribe medicine for pain, muscle relaxation, and antiinflammatory effects. If the pain is new, and seems to be due to muscle strain, cold packs can help. Otherwise, apply gentle warmth to the painful area for 15 minutes every hour or two. You should call contact the doctor immediately if things change. Further evaluation is needed if you develop a fever or cough, if the nature of the pain changes, or if you become short of breath. ANGINA EPISODE: Your physician has diagnosed the pain you experienced as an episode of angina. Angina occurs when a portion of the heart muscle temporarily lacks oxygen. It does not cause any permanent heart damage, but serves as a warning. Hospitalization is not necessary now. Evaluation of your cardiac condition , and medical therapy for angina will be necessary. It's important you be sure to keep all appointments and take medication exactly as prescribed. Angina is usually treated with a type of "nitrate" medication. This is available as ointment, pills, or sublingual (under the tongue) tablets. Depending on your clinical situation, other medications may be added to help control angina. These may include beta blockers or calcium blockers. If episodes of angina are occurring with increased frequency, or if chest pain lasts longer than 15 minutes or does not respond to nitroglycerin, you must seek emergency medical care immediately. ASPIRIN: Aspirin has been shown to have a beneficial effect on blood circulation by reducing the clotting effect of platelets in the blood. These beneficial effects can be achieved by taking just a single baby (81 mg) aspirin a day. It is recommended that any person over the age of forty take a single baby aspirin every day for heart and brain circulation, unless you are allergic to aspirin or have some significant bleeding disorder. It is strongly recommended that people who have proven cardiac or blood circulation disturbances should take a baby aspirin every day. NITRATES: Nitroglycerin and related longer-acting nitrate medications are used to prevent or treat attacks of angina. These medicines dilate blood vessels, decreasing the work of the heart, and improving its supply of oxygen. Many different forms are available, including sublingual tablets (used under the tongue), sprays, skin patches, and long-acting pills. If the particular form of medication you have been given is not working well for you, contact your doctor. Long-acting forms: Take exactly as prescribed. Sudden stopping of medication can provoke increased attacks. Sublingual tabs or spray: A headache will usually occur with use. Sit or lie while waiting for the pain to go away. If angina doesn't respond to three doses (five minutes apart), call for emergency assistance. FOLLOW-UP CARE: If you have been referred to a physician for follow-up care, call the physician s office for an appointment as you were instructed or within the next two days. If you experience worsening or a significant change in your symptoms, notify the physician immediately or return to the Emergency Department at any time for re-evaluation. HEADACHE: The physician does not feel that the headache you are experiencing has a serious underlying cause. Most headaches are due to emotional stress, with resultant muscle tension (tension headache). Occasionally, headaches are secondary to changes in the blood vessels of the scalp (vascular headache and migraine headache). Sometimes, a headache is the first symptom of another developing illness, such as a viral infection. You have no evidence of stroke, bleeding, meningitis, or other serious cause of your headache. The treatment of headaches varies with the severity and cause of the pain. Not all headaches need pain shots. In fact, there is evidence that using narcotics for headaches may make them worse in the long run. The physician will determine the therapy that's in your best interest. If you develop a fever, if the headache is different from any you've previously experienced, or if the headache progressively worsens, then call your physician at once or go to the emergency room. REGLAN (METOCLOPRAMIDE): Reglan has been prescribed. This medicine affects the stomach and intestines. It can be used to treat nausea and vomiting, to prevent reflux of stomach acid up into the esophagus, or to increase the contractions of the stomach and intestines. It is often prescribed for esophagitis, and for paralysis of the stomach in diabetics. Reglan can cause either mild restlessness or drowsiness. You should contact the doctor at once if you become extremely restless, anxious, or cannot sleep, or if you develop uncontrollable motions of the lips, tongue, or jaw. Do not take alcohol with this medicine. Do not drive or operate machinery until you have been taking this medicine long enough to know how it affects you. Call the doctor if you develop abdominal pains, lightheadedness, black stool, or blood in the stool or vomitus. USE OF DIPHENHYDRAMINE: Diphenhydramine (Benadryl) is an antihistamine and has been recommended to help treat your headache and to prevent side effects of other medications used to treat headaches. The medication can be repeated four times daily. Age Elixir (12.5 mg/tsp) 25 mg pill adult 1-2 tabs Antihistamines may cause drowsiness, especially with the first dose. Do not operate machinery or drive while under the effects of the medication. Do not combine the medication with alcohol, or with any other medication without talking to your doctor. TORADOL INJECTION: You have been given an injection of ketorolac tromethamine (Toradol). This is an excellent, safe drug for pain control. It also has potent antiinflammatory action. You should have significant pain relief within about one hour. Toradol is not addicting and is non-sedating. It does not interfere with driving or work. Call or return if you develop itching, hives, shortness of breath, or rash. FOLLOW-UP CARE: If you have been referred to a physician for follow-up care, call the physician s office for an appointment as you were instructed or within the next two days. If you experience worsening or a significant change in your symptoms, notify the physician immediately or return to the Emergency Department at any time for re-evaluation. Forms: Elevated Blood Pressure Referrals: NIRMALA DUNHAM MD [EMERITUS] - Follow up as needed
[2017-07-22 11:59] LABS: ABSOLUTE BASOPHILS # (AUTO) 0.1 10^3/uL (0.0-0.2); ABSOLUTE EOSINOPHILS # (AUTO) 0.2 10^3/uL (0.0-0.6); ABSOLUTE LYMPHOCYTES (AUTO) 1.9 10^3/uL (0.5-4.7); ABSOLUTE MONOCYTES (AUTO) 0.7 10^3/uL (0.1-1.4); ABSOLUTE NEUT (AUTO) 4.3 10^3/uL (1.7-8.2); BASOPHILS % (AUTO) 1.1 % (0-2); EOSINOPHILS % (AUTO) 3.2 % (0-6); HEMATOCRIT 45.2 % (37.9-51.0); HEMOGLOBIN 15.7 g/dL (13.5-17.0); LYMPHOCYTES % (AUTO) 26.1 % (13-45); MEAN CORPUSCULAR HEMOGLOBIN 32.1 pg (27.0-33.4); MEAN CORPUSCULAR HGB CONC 34.7 g/dL (32.0-36.0); MEAN CORPUSCULAR VOLUME 92 fl (80-97); MONOCYTES % (AUTO) 10.1 % (3-13); PLATELET COUNT 247 10^3/uL (150-450); RED BLOOD COUNT 4.89 10^6/uL (4.35-5.55); RED CELL DISTRIBUTION WIDTH 13.3 % (11.5-14.0); SEGMENTED NEUTROPHILS % (AUTO) 59.5 % (42-78); TOTAL CELLS COUNTED % (AUTO) 100 %; WHITE BLOOD COUNT 7.3 10^3/uL (4.0-10.5)
[2017-07-22 12:19] LABS: ALANINE AMINOTRANSFERASE 52 U/L (21-72); ALBUMIN 4.4 g/dL (3.5-5.0); ALKALINE PHOSPHATASE 49 U/L (38-126); ANION GAP 10 (5-19); ASPARTATE AMINO TRANSFERASE 32 U/L (17-59); BILIRUBIN,DIRECT 0.3 mg/dL (0.0-0.4); BILIRUBIN,TOTAL 0.9 mg/dL (0.2-1.3); BLOOD UREA NITROGEN 12 mg/dL (7-20); CALCIUM 9.7 mg/dL (8.4-10.2); CARBON DIOXIDE 25 mmol/L (22-30); CHLORIDE 105 mmol/L (98-107); CREATINE KINASE 70 U/L (55-170); GLUCOSE 108 mg/dL (75-110); POTASSIUM 4.9 mmol/L (3.6-5.0); SODIUM 140.3 mmol/L (137-145); TOTAL PROTEIN 8.1 g/dL (6.3-8.2)
--- NOTE | 2017-07-22 12:26 | RADIOLOGY REPORT (SQ) ---
EXAM DESCRIPTION: CHEST SINGLE VIEW COMPLETED DATE/TIME: 07/22/2017 12:17 pm REASON FOR STUDY: chest pain COMPARISON: 04/09/2017 EXAM PARAMETERS: NUMBER OF VIEWS: One view. TECHNIQUE: Single frontal radiographic view of the chest acquired. RADIATION DOSE: NA LIMITATIONS: None. FINDINGS: LUNGS AND PLEURA: No opacities, masses or pneumothorax. No pleural effusion. MEDIASTINUM AND HILAR STRUCTURES: No masses. Contour normal. HEART AND VASCULAR STRUCTURES: Heart normal in size. Normal vasculature. BONES: No acute findings. HARDWARE: Status post CABG OTHER: No other significant finding. IMPRESSION: NO ACUTE RADIOGRAPHIC FINDING IN THE CHEST. TECHNICAL DOCUMENTATION: JOB ID: [id number] [employer]- All Rights Reserved Reading location - IP/workstation name: [email or web address]
[2017-07-22] MEDS ORDERED: KETOROLAC TROMETHAMINE INJ/PF 30 MG/1 ML SDV IV ONE (12:30)
[2017-07-22] MEDS ORDERED: NORMAL SALINE 1000 ML 1,000 ML IV ONE (12:30)
[2017-07-22] MEDS ORDERED: METOCLOPRAMIDE HCL INJ/PF 10 MG/2 ML SDV IV ONE (12:30)
[2017-07-22] MEDS ORDERED: DIPHENHYDRAMINE HCL 50 MG/ML VIAL IV ONE (12:30)
[2017-07-22 12:31] LABS: NT PRO BNP 84 pg/mL (5-900)
[2017-07-22 12:32] LABS: TROPONIN I < 0.012 ng/mL
--- NOTE | 2017-07-22 12:41 | EKG REPORT ---
SEVERITY:- ABNORMAL ECG - SINUS RHYTHM PROBABLE LEFT ATRIAL ABNORMALITY ABNRM R PROG, CONSIDER ASMI OR LEAD PLACEMENT BORDERLINE T ABNORMALITIES, INFERIOR LEADS : Confirmed by: Marcell Marinelli MD 22-Jul-2017 12:41:07
--- NOTE | 2017-07-22 15:32 | RADIOLOGY REPORT (SQ) ---
EXAM DESCRIPTION: CTA NECK; CTA HEAD COMPLETED DATE/TIME: 07/22/2017 2:53 pm REASON FOR STUDY: suspected thrombus in left carotid on [facility] COMPARISON: None. TECHNIQUE: Axial dynamic scanning technique with dynamic contrast enhancement through the extra-hog scraper nial carotid and vertebral arteries. Multiplanar reconstruction. 3-D MIPS and Volume-rendered imag es acquired at the workstation and saved to PACS. Images are reviewed in soft tissue, bone, lung w indows. Axial dynamic scanning technique with dynamic contrast enhancement through the intracranial carotid and vertebral arteries. Multiplanar reconstruction. 3-D MIPS and Volume-rendered images acquired at the workstation and saved to PACS. Images are reviewed in soft tissue, bone, lung windows. All CT scanners at this facility use dose modulation, iterative reconstruction, and/or weight based d osing when appropriate to reduce radiation dose to as low as reasonably achievable (ALARA). [facility]: Dose Right [facility]: CareDose [facility]: Dose Right [facility]: Teradose 4D [facility]: CineCoup CONTRAST TYPE AND DOSE: contrast/concentration: Isovue 370.00 mg/ml; Total Contrast Delivered: 70.0 ml; Total Saline Delivered: 71.1 ml RENAL FUNCTION: Creatinine 1.02 LIMITATIONS: None. FINDINGS: AORTIC ARCH: Normal three-vessel origin. Bilateral subclavian arteries are patent. No d issection. RIGHT CAROTIDS: Patent common, internal and external carotid arteries. No dissection. There is minim al atherosclerotic change at the right carotid bifurcation without flow significant stenosis of the p roximal right ICA. RIGHT VERTEBRAL: Patent, non dominant. No dissection. LEFT CAROTIDS: Patent common, internal and external carotid arteries are patent. No dissection. The re is moderate atherosclerotic change at the left carotid bifurcation. A ulcerated plaque is present best shown on axial image 64/156. 50 to 69% diameter narrowing of the proximal left ICA is present by direct vessel diameter measurement. Remainder of the left cervical internal carotid artery is pat ent. LEFT VERTEBRAL: Patent, dominant. No dissection. [place]: No [place] stenosis, vascular malformation or aneurysm. Normal contrast e nhancement of the dural venous sinuses. OTHER: 3-D reconstructions confirm findings. ADDITIONAL FINDINGS: Non contrasted CT brain demonstrates no CT evidence of acute large territory ischemic change, acute i ntracranial hemorrhage, mass effect, or midline shift. Prominent perivascular space right basal gang cande axial image 16. 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 Old left posterior frontal/parietal co rtical and subcortical white matter infarct axial image 23. On the post contrasted CT brain images, no abnormal brain parenchymal, dural, or vascular enhancement is present. No evidence of dural venous sinus thrombosis. 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 Old sternotomy for CABG. Thyroid and neck soft tissues are unre markable. Multilevel degenerative changes cervical spine with mild central canal stenosis and modera te bilateral foraminal narrowing at C5-6. No CT evidence of right or left jugular vein thrombosis These results were discussed with Dr. Ortiz in the emergency room IMPRESSION: NORMAL CTA OF THE EXTRA-CRANIAL and INTRACRANIAL CAROTID AND VERTEBRAL ARTERIES. COMMENT: Quality ID #195: Measurements of distal internal carotid diameter were used as the denomina tor for stenosis measurement. TECHNICAL DOCUMENTATION: JOB ID: [id number] Quality ID # [id number]: Final reports with documentation of one or more dose reduction techniques (e.g., Au tomated exposure control, adjustment of the mA and/or kV according to patient size, use of iterative reconstruction technique) 2010 [employer]- All Rights Reserved Reading location - IP/workstation name: [email or web address]
--- NOTE | 2017-07-22 15:32 | RADIOLOGY REPORT (SQ) ---
EXAM DESCRIPTION: CTA NECK; CTA HEAD COMPLETED DATE/TIME: 07/22/2017 2:53 pm REASON FOR STUDY: suspected thrombus in left carotid on [facility] COMPARISON: None. TECHNIQUE: Axial dynamic scanning technique with dynamic contrast enhancement through the extra-wallpaper scraper nial carotid and vertebral arteries. Multiplanar reconstruction. 3-D MIPS and Volume-rendered imag es acquired at the workstation and saved to PACS. Images are reviewed in soft tissue, bone, lung w indows. Axial dynamic scanning technique with dynamic contrast enhancement through the intracranial carotid and vertebral arteries. Multiplanar reconstruction. 3-D MIPS and Volume-rendered images acquired at the workstation and saved to PACS. Images are reviewed in soft tissue, bone, lung windows. All CT scanners at this facility use dose modulation, iterative reconstruction, and/or weight based d osing when appropriate to reduce radiation dose to as low as reasonably achievable (ALARA). [facility]: Dose Right [facility]: CareDose [facility]: Dose Right [facility]: Teradose 4D [facility]: URBANARA CONTRAST TYPE AND DOSE: contrast/concentration: Isovue 370.00 mg/ml; Total Contrast Delivered: 70.0 ml; Total Saline Delivered: 71.1 ml RENAL FUNCTION: Creatinine 1.02 LIMITATIONS: None. FINDINGS: AORTIC ARCH: Normal three-vessel origin. Bilateral subclavian arteries are patent. No d issection. RIGHT CAROTIDS: Patent common, internal and external carotid arteries. No dissection. There is minim al atherosclerotic change at the right carotid bifurcation without flow significant stenosis of the p roximal right ICA. RIGHT VERTEBRAL: Patent, non dominant. No dissection. LEFT CAROTIDS: Patent common, internal and external carotid arteries are patent. No dissection. The re is moderate atherosclerotic change at the left carotid bifurcation. A ulcerated plaque is present best shown on axial image 64/156. 50 to 69% diameter narrowing of the proximal left ICA is present by direct vessel diameter measurement. Remainder of the left cervical internal carotid artery is pat ent. LEFT VERTEBRAL: Patent, dominant. No dissection. [place]: No [place] stenosis, vascular malformation or aneurysm. Normal contrast e nhancement of the dural venous sinuses. OTHER: 3-D reconstructions confirm findings. ADDITIONAL FINDINGS: Non contrasted CT brain demonstrates no CT evidence of acute large territory ischemic change, acute i ntracranial hemorrhage, mass effect, or midline shift. Prominent perivascular space right basal gang cande axial image 16. 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 Old left posterior frontal/parietal co rtical and subcortical white matter infarct axial image 23. On the post contrasted CT brain images, no abnormal brain parenchymal, dural, or vascular enhancement is present. No evidence of dural venous sinus thrombosis. 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 Old sternotomy for CABG. Thyroid and neck soft tissues are unre markable. Multilevel degenerative changes cervical spine with mild central canal stenosis and modera te bilateral foraminal narrowing at C5-6. No CT evidence of right or left jugular vein thrombosis These results were discussed with Dr. Ortiz in the emergency room IMPRESSION: NORMAL CTA OF THE EXTRA-CRANIAL and INTRACRANIAL CAROTID AND VERTEBRAL ARTERIES. COMMENT: Quality ID #[id number]: Measurements of distal internal carotid diameter were used as the denomina tor for stenosis measurement. TECHNICAL DOCUMENTATION: JOB ID: [id number] Quality ID # [id number]: Final reports with documentation of one or more dose reduction techniques (e.g., Au tomated exposure control, adjustment of the mA and/or kV according to patient size, use of iterative reconstruction technique) 2010 [employer]- All Rights Reserved Reading location - IP/workstation name: [email or web address]
[2017-07-22 15:39] VITALS: BP 106/72
== END 2017-07-22 15:40 | disposition home or self-care (01) ==
LOC: ER 11:38
DX: R07.9 Chest pain, unspecified (principal); M54.2 Cervicalgia; R51 Headache; I10 Essential (primary) hypertension; I25.10 Atherosclerotic heart disease of native coronary artery without angina pectoris; I25.2 Old myocardial infarction; J44.9 Chronic obstructive pulmonary disease, unspecified; Z95.5 Presence of coronary angioplasty implant and graft; Z95.1 Presence of aortocoronary bypass graft
CPT/HCPCS: 93005; 99285; 96361; 96374; 96375; 36415; 82550; 85025; 80053; 84484; 83880; 71045; 70496; 70498; 93010; J1200; J1885; J2765; J7030

== ENCOUNTER 2018-05-27 17:54 | Emergency (ER) | payer OTHER, MEDICARE ==
[2018-05-27 18:16] VITALS: BP 123/84
--- NOTE | 2018-05-28 09:24 | EKG REPORT ---
SEVERITY:- ABNORMAL ECG - SINUS RHYTHM PROBABLE LEFT ATRIAL ABNORMALITY CONSIDER ANTEROSEPTAL INFARCT NONSPECIFIC T ABNORMALITIES, INFERIOR LEADS : Confirmed by: Susana Owens 28-May-2018 09:22:40
== END 2018-05-27 21:13 | disposition left against medical advice (07) ==
LOC: ER 17:54
DX: Z53.21 Procedure and treatment not carried out due to patient leaving prior to being seen by health care provider (principal); R10.9 Unspecified abdominal pain
CPT/HCPCS: 93005; 93010

== ENCOUNTER 2018-05-28 11:25 | Emergency (ER) | payer OTHER, MEDICARE ==
--- NOTE | 2018-05-28 12:11 | ER Document Report ---
ED General - General Chief Complaint: Abdominal Pain Stated Complaint: STOMACH PAIN Time Seen by Provider: 05/28/18 11:50 Mode of Arrival: Ambulatory Information source: Patient TRAVEL OUTSIDE OF THE [place] IN LAST 30 DAYS: No - HPI Notes: 62-year-old male with a history of COPD AAA presents to the ED for complaints of right upper quadrant abdominal pain, been occurring for the last week, pain worse with coughing, sneezing, while at rest, pain is 6 out of 10 throbbing and sharp. Denies pain is worse after eating. Patient states that he does take a bab y aspirin. Does still have his gallbladder. Denies any nausea vomiting diarrhea, denies any fever chills, chest pain shortness of breath. Worse with time, nothing makes it better. Patient is guarding his right upper quadrant. Former smoker. Has not seen his provider for this issue. His primary care is Dr. Amelia Ram at the [facility] - Related Data Allergies/Adverse Reactions: No Known Allergies Allergy (Verified 05/28/18 11:30) Past Medical History - Social History Smoking Status: Former Smoker Chew tobacco use (# tins/day): No Frequency of alcohol use: None Drug Abuse: None Family History: CAD, CVA, DM, Hypertension, Malignancy, Other - Renal failure Patient has suicidal ideation: No Patient has homicidal ideation: No - Past Medical History Cardiac Medical History: Reports: Hx Coronary Artery Disease, Hx Heart Attack, Hx Hypercholesterolemia, Hx Hypertension Pulmonary Medical History: Reports: Hx COPD Renal/ Medical History: Denies: Hx Peritoneal Dialysis Psychiatric Medical History: Reports: Hx Depression Past Surgical History: Reports: Hx Cardiac Surgery - bypass, Hx Coronary Artery Bypass Graft, Other - Back surgery Physical Exam - Vital signs Vitals: Temp Pulse Resp BP Pulse Ox 97.7 F 73 16 110/76 96 05/28/18 11:46 05/28/18 11:46 05/28/18 11:46 05/28/18 11:46 05/28/18 11:46 Interpretation: Normal - Notes Notes: PHYSICAL EXAMINATION: GENERAL: Well-appearing, well-nourished and in no acute distress. HEAD: Atraumatic, normocephalic. EYES: Pupils equal round and reactive to light, extraocular movements intact, sclera anicteric, conjunctiva are normal. ENT: Nares patent, oropharynx clear without exudates. Moist mucous membranes. NECK: Normal range of motion, supple without lymphadenopathy LUNGS: Breath sounds clear to auscultation bilaterally and equal. No wheezes rales or rhonchi. HEART: Regular rate and rhythm without murmurs ABDOMEN: Soft, nondistended abdomen. Tenderness right upper quadrant on palpation with rebound, positive Topete sign. Unable to reproduce tenderness on chest wall to right lower rib and right lower intercostal spaces on palpation. slight guarding no right, no rebound. No masses appreciated. No CVA tenderness appreciated bilaterally Musculoskeletal: Normal range of motion, no pitting or edema. No cyanosis. NEUROLOGICAL: Cranial nerves grossly intact. Normal speech, normal gait. Normal sensory, motor exams PSYCH: Normal mood, normal affect. SKIN: Warm, Dry, normal turgor, no rashes or lesions noted. - Respiratory Respiratory status: No respiratory distress Chest status: Nontender Breath sounds: Normal Chest palpation: Normal Course - Vital Signs Vital signs: Temp Pulse Resp BP Pulse Ox 97.7 F 73 16 110/76 96 05/28/18 11:46 05/28/18 11:46 05/28/18 11:46 05/28/18 11:46 05/28/18 11:46
[2018-05-28 12:58] LABS: ABSOLUTE EOSINOPHILS # (AUTO) 0.1 10^3/uL (0.0-0.6); ABSOLUTE LYMPHOCYTES (AUTO) 1.2 10^3/uL (0.5-4.7); ABSOLUTE MONOCYTES (AUTO) 0.6 10^3/uL (0.1-1.4); ABSOLUTE NEUT (AUTO) 3.7 10^3/uL (1.7-8.2); BASOPHILS % (AUTO) 0.8 % (0-2); EOSINOPHILS % (AUTO) 2.4 % (0-6); HEMOGLOBIN 17.9 g/dL (13.5-17.0); LYMPHOCYTES % (AUTO) 20.6 % (13-45); MEAN CORPUSCULAR HEMOGLOBIN 32.6 pg (27.0-33.4); MEAN CORPUSCULAR HGB CONC 34.4 g/dL (32.0-36.0); MEAN CORPUSCULAR VOLUME 95 fl (80-97); MONOCYTES % (AUTO) 10.9 % (3-13); PLATELET COUNT 246 10^3/uL (150-450); RED BLOOD COUNT 5.48 10^6/uL (4.35-5.55); RED CELL DISTRIBUTION WIDTH 13.8 % (11.5-14.0); SEGMENTED NEUTROPHILS % (AUTO) 65.3 % (42-78); TOTAL CELLS COUNTED % (AUTO) 100 %; WHITE BLOOD COUNT 5.7 10^3/uL (4.0-10.5)
[2018-05-28 13:04] LABS: APPEARANCE,URINE SLIGHTLY-CLOUDY; BILIRUBIN,URINE NEGATIVE (NEGATIVE); COLOR,URINE YELLOW; GLUCOSE, URINE NEGATIVE (NEGATIVE); KETONES,URINE NEGATIVE (NEGATIVE); LEUKOCYTE ESTERASE,URINE NEGATIVE (NEGATIVE); NITRITE,URINE NEGATIVE (NEGATIVE); PROTEIN,URINE NEGATIVE (NEGATIVE); URINE SPECIFIC GRAVITY 1.016; UROBILINOGEN,URINE NEGATIVE mg/dL (<2.0)
--- NOTE | 2018-05-28 13:04 | RADIOLOGY REPORT (SQ) ---
EXAM DESCRIPTION: RIBS RIGHT W/PA CHEST COMPLETED DATE/TIME: 05/28/2018 12:53 pm REASON FOR STUDY: R lower rib/RUQ abd pain COMPARISON: 07/22/2017. TECHNIQUE: Frontal view of the chest and additional views of the right ribs acquired. NUMBER OF VIEWS: Three view. LIMITATIONS: None. FINDINGS: FRONTAL CXR: Chronic interstitial changes. No pneumothorax. No pleural effusion. No ate lectasis or infiltrates. RIBS: No displaced rib fractures. No lytic or blastic bony lesions. OTHER: No other significant finding. IMPRESSION: CHRONIC INTERSTITIAL CHANGES. NO PNEUMOTHORAX. NO DISPLACED RIB FRACTURES. COMMENT: SITE OF TRAUMA/COMPLAINT MARKED/STAMP COMPLETED: YES. TECHNICAL DOCUMENTATION: JOB ID: [id number] [employer]- All Rights Reserved Reading location - IP/workstation name: [email or web address]
[2018-05-28 13:05] LABS: INTERNATIONAL RATION (INR) 1.03
[2018-05-28 13:06] LABS: PARTIAL THROMBOPLASTIN TIME 32.1 SEC (23.5-35.8)
[2018-05-28 13:15] LABS: ALANINE AMINOTRANSFERASE 43 U/L (21-72); ALBUMIN 5.3 g/dL (3.5-5.0); ALKALINE PHOSPHATASE 76 U/L (38-126); ANION GAP 11 (5-19); ASPARTATE AMINO TRANSFERASE 42 U/L (17-59); BILIRUBIN,DIRECT 0.2 mg/dL (0.0-0.4); BLOOD UREA NITROGEN 15 mg/dL (7-20); CALCIUM 10.8 mg/dL (8.4-10.2); CARBON DIOXIDE 29 mmol/L (22-30); CHLORIDE 101 mmol/L (98-107); CREATINE KINASE 65 U/L (55-170); GLUCOSE 108 mg/dL (75-110); LIPASE 159.1 U/L (23-300); POTASSIUM 5.5 mmol/L (3.6-5.0); SODIUM 141.4 mmol/L (137-145); TOTAL PROTEIN 9.5 g/dL (6.3-8.2)
[2018-05-28 13:29] LABS: CREATINE KINASE MB 0.27 ng/mL (<4.55); TROPONIN I < 0.012 ng/mL
[2018-05-28] MEDS ORDERED: MORPHINE SULFATE 10 MG/ML INJ IV ONE (14:31)
[2018-05-28] MEDS ORDERED: ONDANSETRON HCL INJ/PF 4 MG/2 ML SDV IV ONE (14:31)
--- NOTE | 2018-05-28 14:37 | ER Document Report ---
ED General - General Chief Complaint: Abdominal Pain Stated Complaint: STOMACH PAIN Time Seen by Provider: 05/28/18 11:50 Mode of Arrival: Ambulatory Information source: Patient, [facility] Records Notes: 62-year-old male with coronary artery disease, hyperlipidemia, hypertension, COPD presents with complaint of right upper quadrant abdominal pain that started 1 week prior to arrival. Patient describes the pain as constant, sharp and worse with coughing and deep breathing. Patient states that he has a history of hepatitis C but underwent treatment and reports that the virus was undetectable on his last visit. He states he thought maybe this had something to do with his liver. Patient admits to radiation of pain to his back and up to his right shoulder. Patient denies associated fever, chills, chest pain, shortness of breath, nausea, vomiting, diarrhea, black or bloody stools, dysuria, hematuria, history of previous kidney stones. Patient was here yesterday and states he left after not being seen for several hours. TRAVEL OUTSIDE OF THE [place] IN LAST 30 DAYS: No - HPI Onset: Last week Onset/Duration: Gradual, Persistent Quality of pain: Stabbing Severity: Moderate Associated symptoms: Hurts to breath, Other - Patient does report recent weight loss due to decreased appetite.. denies: Chest pain, Nonproductive cough, Productive cough, Diarrhea, Fever, Headache, Nausea, Vomiting, Shortness of breath, Sweating Exacerbated by: Movement, Walking Relieved by: Remaining still Similar symptoms previously: No Recently seen / treated by doctor: No - Related Data Allergies/Adverse Reactions: No Known Allergies Allergy (Verified 05/28/18 11:30) Past Medical History - General Information source: Patient - Social History Smoking Status: Former Smoker Chew tobacco use (# tins/day): No Frequency of alcohol use: None Drug Abuse: None Lives with: Family Family History: CAD, CVA, DM, Hypertension, Malignancy, Other - Renal failure Patient has suicidal ideation: No Patient has homicidal ideation: No - Past Medical History Cardiac Medical History: Reports: Hx Coronary Artery Disease, Hx Heart Attack, Hx Hypercholesterolemia, Hx Hypertension Pulmonary Medical History: Reports: Hx COPD Renal/ Medical History: Denies: Hx Peritoneal Dialysis Psychiatric Medical History: Reports: Hx Depression Past Surgical History: Reports: Hx Cardiac Surgery - bypass, Hx Coronary Artery Bypass Graft, Other - Back surgery Review of Systems - Review of Systems Notes: REVIEW OF SYSTEMS: CONSTITUTIONAL : Denies fever, chills, or sweats. Denies recent illness. Denies weight loss, recent hospitalizations. EENT: Denies visual changes, eye pain. Denies sore throat, oral lesions, difficulty swallowing. CARDIOVASCULAR: Denies chest pain. Denies palpitations. Denies lower extremity edema. RESPIRATORY: Denies cough. Denies shortness of breath, wheezing. GASTROINTESTINAL: Denies abdominal distention. Denies nausea, vomiting, or diarrhea. Denies blood in vomitus, stools, or per rectum. Denies black, tarry stools. Denies constipation. GENITOURINARY: Denies difficulty urinating, painful urination, frequency, blood in urine, testicular pain or penile discharge. MUSCULOSKELETAL: Denies back or neck pain or stiffness. Denies joint pain or swelling. SKIN: Denies rash, lesions or sores. HEMATOLOGIC : Denies easy bruising or bleeding. LYMPHATIC: Denies swollen glands. NEUROLOGICAL: Denies confusion or altered mental status. Denies loss of consciousness. Denies dizziness or lightheadedness. Denies headache. Denies weakness or paralysis. Denies problems difficulty with ambulation, slurred speech. Denies sensory loss, numbness, or tingling. Denies seizures. PSYCHIATRIC: Denies anxiety or stress. Denies depression, suicidal ideation, or Physical Exam - Vital signs Vitals: Temp Pulse Resp BP Pulse Ox 97.7 F 73 16 110/76 96 05/28/18 11:46 05/28/18 11:46 05/28/18 11:46 05/28/18 11:46 05/28/18 11:46 - Notes Notes: PHYSICAL EXAMINATION: GENERAL: Well-appearing, well-nourished and in no acute distress. HEAD: Atraumatic, normocephalic. EYES: Pupils equal round and reactive to light, extraocular movements intact, sclera anicteric, conjunctiva are normal. ENT: Nares patent, oropharynx clear without exudates. Moist mucous membranes. NECK: Normal range of motion, supple without lymphadenopathy LUNGS: Breath sounds clear to auscultation bilaterally and equal. No wheezes rales or rhonchi. HEART: Regular rate and rhythm without murmurs ABDOMEN: Tenderness with palpation to the right upper quadrant. No CVA tender ness. No pulsatile mass. No guarding, no rebound. No masses appreciated. Musculoskeletal: Normal range of motion, no pitting or edema. No cyanosis. NEUROLOGICAL: Cranial nerves grossly intact. Normal speech, normal gait. Normal sensory, motor exams PSYCH: Normal mood, normal affect. SKIN: Warm, Dry, normal turgor, no rashes or lesions noted. Course - Re-evaluation Re-evalutation: Laboratory 05/28/18 05/28/18 05/28/18 12:12 12:12 12:12 WBC 5.7 RBC 5.48 Hgb 17.9 H Hct 52.0 H MCV 95 MCH 32.6 MCHC 34.4 RDW 13.8 Plt Count 246 Seg Neutrophils % 65.3 Lymphocytes % 20.6 Monocytes % 10.9 Eosinophils % 2.4 Basophils % 0.8 Absolute Neutrophils 3.7 Absolute Lymphocytes 1.2 Absolute Monocytes 0.6 Absolute Eosinophils 0.1 Absolute Basophils 0.0 PT 14.0 INR 1.03 APTT 32.1 Sodium 141.4 Potassium 5.5 H Chloride 101 Carbon Dioxide 29 Anion Gap 11 BUN 15 Creatinine 0.98 Est GFR ( Amer) > 60 Est GFR (Non-Af Amer) > 60 Glucose 108 Calcium 10.8 H Total Bilirubin 1.0 Direct Bilirubin 0.2 Neonat Total Bilirubin Not Reportable Neonat Direct Bilirubin Not Reportable Neonat Indirect Bili Not Reportable AST 42 ALT 43 Alkaline Phosphatase 76 Creatine Kinase 65 CK-MB (CK-2) Troponin I Total Protein 9.5 H Albumin 5.3 H Lipase 159.1 Urine Color Urine Appearance Urine pH Ur Specific [place] Urine Protein Urine Glucose (UA) Urine Ketones Urine Blood Urine Nitrite Urine Bilirubin Urine Urobilinogen Ur Leukocyte Esterase Urine WBC (Auto) Urine RBC (Auto) U Hyaline Cast (Auto) Urine Mucus (Auto) Urine Ascorbic Acid 05/28/18 05/28/18 05/28/18 12:12 12:12 20:45 WBC RBC Hgb Hct MCV MCH MCHC RDW Plt Count Seg Neutrophils % Lymphocytes % Monocytes % Eosinophils % Basophils % Absolute Neutrophils Absolute Lymphocytes Absolute Monocytes Absolute Eosinophils Absolute Basophils PT INR APTT Sodium Potassium Chloride Carbon Dioxide Anion Gap BUN Creatinine Est GFR ( Amer) Est GFR (Non-Af Amer) Glucose Calcium Total Bilirubin Direct Bilirubin Neonat Total Bilirubin Neonat Direct Bilirubin Neonat Indirect Bili AST ALT Alkaline Phosphatase Creatine Kinase CK-MB (CK-2) 0.27 Troponin I < 0.012 < 0.012 Total Protein Albumin Lipase Urine Color YELLOW Urine Appearance SLIGHTLY-CLOUDY Urine pH 6.0 Ur Specific [place] 1.016 Urine Protein NEGATIVE Urine Glucose (UA) NEGATIVE Urine Ketones NEGATIVE Urine Blood NEGATIVE Urine Nitrite NEGATIVE Urine Bilirubin NEGATIVE Urine Urobilinogen NEGATIVE Ur Leukocyte Esterase NEGATIVE Urine WBC (Auto) 1 Urine RBC (Auto) 1 U Hyaline Cast (Auto) 1 Urine Mucus (Auto) RARE Urine Ascorbic Acid 40 H Ribs w/Chest X-Ray 05/28/18 12:02 IMPRESSION: CHRONIC INTERSTITIAL CHANGES. NO PNEUMOTHORAX. NO DISPLACED RIB FRACTURES. Abdomen Ultrasound 05/28/18 12:07 IMPRESSION: No gallstones. The common bile duct is borderline. Correlate for biliary obstruction. Abdomen/Pelvis CTA 05/28/18 14:32 IMPRESSION: 1. There is severe mixed calcific atherosclerosis of abdominal aorta with a focal infrarenal abdominal aortic aneurysm measuring 3.1 x 2.4 cm. No evidence of dissection or other acute aortic syndrome. 2. There is an unusual, very irregular and heterogeneous enhancing lesion of the anterior liver about the falciform ligament. This is of uncertain significance although potentially related to prior surgery or trauma. Malignancy is a differential consideration. Recommend multiphasic contrast-enhanced MRI to further evaluate. Chest/Abdomen CTA 05/28/18 14:32 IMPRESSION: 1. No evidence of thoracic aortic dissection, aneurysm, or other acute aortic syndrome. 2. Moderate pulmonary fibrosis in a "possible UIP" pattern by ATS pulmonary fibrosis criteria. 3. Mild emphysema. 4. Coronary artery disease. Abdomen MRI 05/28/18 16:17 IMPRESSION: Irregular lesion in the left lobe of the liver demonstrate characteristics of hemangioma, but in retrospect when the abdominal ultrasound is reviewed, this does not have the typical appearance of a hemangioma. Temp Pulse Resp BP Pulse Ox 98.5 F 73 20 129/91 H 92 05/28/18 21:54 05/28/18 11:46 05/28/18 21:01 05/28/18 21:54 05/28/18 21:54 05/28/18 14:36 62-year-old male with coronary artery disease, hyperlipidemia, hypertension, COPD presents with 1 week of right upper quadrant abdominal pain. Upon arrival vitals were reviewed and within normal limits. Patient is afebrile, normotensive and not hypoxic or tachycardic. Patient does not appear toxic or dehydrated. He is in no acute distress. Exam is significant for tenderness with palpation to the right upper quadrant. Patient did receive morphine, Zofran. EKG was obtained which showed the patient to be in normal sinus rhythm at a rate of 70. CBC, CMP, lipase cardiac enzymes including delta troponin are all within normal limits. 05/28/18 17:31 Patient reevaluated and is asked still experiencing pain. CT of the abdomen was concerning for malignancy and recommend MRI of the abdomen which is also indicated since patient's ultrasound which shows upper limits of normal of the patient's CBD. 05/28/18 21:00 I tried to to reach the reading radiologist of the patient's MRI but he is no longer available. Nighttime radiologist is unable to see previous imaging at this time. I did talk to surgery who reviewed the findings with me and states that this can be done as an outpatient. Patient has no evidence of biliary obstruction. Patient will likely need follow-up with GI and a biopsy. 05/28/18 21:10 Patient has been reevaluated multiple times and every time I go into the room he has a new complaint. He states he wants to stay overnight because he does not want to call his girlfriend who is working far away. Unfortunately the patient's extensive imaging did not help differentiate this mass seen on his liver. Patient has been seen by gastroenterology in [place] for hepatitis C. I advised him to call them for another appointment and possible biopsy. 05/28/18 21:14 Repeat EKG was performed when the patient complained of chest pain. Repeat EKG shows the patient to be in normal sinus rhythm with a rate of 69. Initial troponin within normal limits. Delta troponin pending. 05/29/18 11:30 Delta troponin within normal limits. I have found no reason to admit this patient at this time although he is persistently requesting. Patient was provided copies of all of his imaging today and urged to follow-up with gastroenterology. Patient states that he needs a social media marketing analyst closer to home. I did contact the head insulation board saw operator and asked if we will have gastroenterology the next week or so when she states that Dr. Ribeiro will be on starting the . I have provided the patient with his information and again urged him to bring all of this information back to the [place] where he receives his primary care. Patient was evaluated and treated as appropriate for the patient's presenting symptoms and complaint, with consideration of any critical or life threatening conditions that may be associated with their obtained history and exam as noted above. All results were discussed with patient . Patient provided the opportunity to ask questions, and express concerns. Patient was educated on treatments based on their presumed diagnosis as noted above. At this time we will discharge the patient with return precautions and follow-up recommendations. Verbal discharge instructions given a the bedside. Medication warnings reviewed. Patient is in agreement with this plan and has verbalized understanding of return precautions. After careful consideration I feel that that patient can be safely discharged from the emergency department, they were advised to followup with a primary care physician in 2-3 days. Dictation on this chart was performed using voice recognition software and may result in unintended grammatical, spelling, syntax or errors. - Vital Signs Vital signs: Temp Pulse Resp BP Pulse Ox 98.5 F 73 20 129/91 H 92 05/28/18 21:54 05/28/18 11:46 05/28/18 21:01 05/28/18 21:54 05/28/18 21:54 - Laboratory Result Diagrams: 05/28/18 12:12 05/28/18 12:12 Laboratory results interpreted by me: 05/28/18 05/28/18 05/28/18 12:12 12:12 12:12 Hgb 17.9 H Hct 52.0 H Potassium 5.5 H Calcium 10.8 H Total Protein 9.5 H Albumin 5.3 H Urine Ascorbic Acid 40 H - Diagnostic Test Radiology reviewed: Image reviewed, Reports reviewed - EKG Interpretation by Vt EKG shows normal: Sinus rhythm Rate: Normal Rhythm: NSR When compared to previous EKG there are: No significant change Discharge - Discharge Clinical Impression: Right upper quadrant abdominal pain, Liver mass, Abdominal pain in male Condition: Good Disposition: HOME, SELF-CARE Instructions: Abdominal Pain ([facility]) Additional Instructions: Your imaging today showed a mass on your liver. Unfortunately we were not able to differentiate what type of mass this is an you will need further workup with gastroenterology and a possible biopsy. Follow up with your [id number] hours for further care or return to the ED IMMEDIATELY if symptoms worsen or you have any concerns. If you cannot afford to follow up with your primary care physician a list of low cost clinics have been provided at the end of your discharge papers as well. Most prescribed medications have multiple side effects. The safest thing to do is when filling your prescription speak to your pharmacist regarding possible interactions with your normal home medications and over the counter medications such as Ibuprofen, Tylenol, Benadryl. If you experience any symptoms that cause you discomfort or concern you should discontinue the medication immediately and return to the emergency room or call your primary care physician. Referrals: [facility] [Primary Care Provider] - Follow up tomorrow GRANT KAMINSKI MD [ACTIVE STAFF] - Follow up in 3-5 days
--- NOTE | 2018-05-28 15:32 | RADIOLOGY REPORT (SQ) ---
EXAM DESCRIPTION: U/S ABDOMEN COMPLETE W/DOPPLER COMPLETED DATE/TIME: 05/28/2018 3:12 pm REASON FOR STUDY: RUQ abdominal pain COMPARISON: None. TECHNIQUE: Dynamic and static grayscale images acquired of the abdomen and recorded on PACS. Additio nal selected color Doppler and spectral images recorded. Note: Study does not meet criteria for complete doppler/duplex scan LIMITATIONS: None. FINDINGS: PANCREAS: Not seen. LIVER: No masses. Echotexture normal. LIVER VASCULATURE: Normal directional flow of the main portal vein and hepatic veins. GALLBLADDER: No stones. Normal wall thickness. No pericholecystic fluid. ULTRASOUND-DETECTED BELL'S SIGN: Negative. INTRAHEPATIC DUCTS AND COMMON DUCT: Common bile duct is borderline at 6.1 mm. No dilated intrahepati c ducts are seen. INFERIOR VENA CAVA: Normal flow. AORTA: No aneurysm. RIGHT KIDNEY: Normal size, 9.3 cm. Normal echogenicity. No solid or suspicious masses. No hydr onephrosis. No calcifications. LEFT KIDNEY: Normal size, 10.5 cm. Normal echogenicity. No solid or suspicious masses. No hydr onephrosis. No calcifications. SPLEEN: Normal size, 8.5 cm. No solid masses. PERITONEAL AND PLEURAL SPACES: No ascites or effusions. OTHER: No other significant finding. IMPRESSION: No gallstones. The common bile duct is borderline. Correlate for biliary obstruction. TECHNICAL DOCUMENTATION: JOB ID: [id number] [employer]- All Rights Reserved Reading location - IP/workstation name: [email or web address]
--- NOTE | 2018-05-28 15:35 | ER Document Report ---
ED Medical Screen (RME) - General Chief Complaint: Abdominal Pain Stated Complaint: STOMACH PAIN Time Seen by Provider: 05/28/18 11:50 Mode of Arrival: Ambulatory TRAVEL OUTSIDE OF THE [place] IN LAST 30 DAYS: No - HPI Notes: 05/28/18 15:35 62-year-old male with a history of COPD AAA presents to the ED for complaints of right upper quadrant abdominal pain, been occurring for the last week, pain worse with coughing, sneezing, while at rest, pain is 6 out of 10 throbbing and sharp. Denies pain is worse after eating. Patient states that he does take a baby aspirin. Does still have his gallbladder. Denies any nausea vomiting diarrhea, denies any fever chills, chest pain shortness of breath. Worse with time, nothing makes it better. Patient is guarding his right upper quadrant. Former smoker. Has not seen his provider for this issue. His primary care is Dr. Amelia Ram at the [facility] I have greeted and performed a rapid initial assessment of this patient. A comprehensive ED assessment and evaluation of the patient, analysis of test results and completion of medical decision making process will be conducted by an additional ED providers. - Related Data Allergies/Adverse Reactions: No Known Allergies Allergy (Verified 05/28/18 11:30) Past Medical History - Social History Chew tobacco use (# tins/day): No Frequency of alcohol use: None Drug Abuse: None - Past Medical History Cardiac Medical History: Reports: Hx Coronary Artery Disease, Hx Heart Attack, Hx Hypercholesterolemia, Hx Hypertension Pulmonary Medical History: Reports: Hx COPD Renal/ Medical History: Denies: Hx Peritoneal Dialysis Psychiatric Medical History: Reports: Hx Depression Past Surgical History: Reports: Hx Cardiac Surgery - bypass, Hx Coronary Artery Bypass Graft, Other - Back surgery - Immunizations History of Influenza Vaccine for 02/2017 - 07/2017 Season: Yes Influenza Administration Date for 02/2017 - 07/2017 Season: 02/09/17 Physical Exam - Vital signs Vitals: Temp Pulse Resp BP Pulse Ox 97.7 F 73 16 110/76 96 05/28/18 11:46 05/28/18 11:46 05/28/18 11:46 05/28/18 11:46 05/28/18 11:46 - Respiratory Respiratory status: No respiratory distress Chest status: Nontender Breath sounds: Normal Chest palpation: Normal - Cardiovascular Rhythm: Regular Heart sounds: Normal auscultation Normal capillary refill: Yes Course - Vital Signs Vital signs: Temp Pulse Resp BP Pulse Ox 97.7 F 73 16 108/64 96 05/28/18 11:46 05/28/18 11:46 05/28/18 11:46 05/28/18 12:33 05/28/18 11:46 - Laboratory Result Diagrams: 05/28/18 12:12 05/28/18 12:12 Laboratory results interpreted by me: 05/28/18 05/28/18 05/28/18 12:12 12:12 12:12 Hgb 17.9 H Hct 52.0 H Potassium 5.5 H Calcium 10.8 H Total Protein 9.5 H Albumin 5.3 H Urine Ascorbic Acid 40 H
--- NOTE | 2018-05-28 15:52 | RADIOLOGY REPORT (SQ) ---
EXAM DESCRIPTION: CTA CHEST COMPLETED DATE/TIME: 05/28/2018 3:36 pm REASON FOR STUDY: h/o AAA w abd pain COMPARISON: None. TECHNIQUE: CT scan of the chest performed using helical scanning technique with dynamic intravenous contrast injection. Images reviewed with lung, soft tissue and bone windows. Reconstructed coronal and sagittal MPR images reviewed. Additional 3 dimensional post-processing performed to develop Maximal Intensity Projection images (SD P). All images stored on PACS. All CT scanners at this facility use dose modulation, iterative reconstruction, and/or weight based d osing when appropriate to reduce radiation dose to as low as reasonably achievable (ALARA). [facility]: Dose Right [facility]: CareDose [facility]: Dose Right [facility]: Teradose 4D [facility]: [employer] CONTRAST TYPE AND DOSE: contrast/concentration: Isovue 350.00 mg/ml; Total Contrast Delivered: 75.0 ml; Total Saline Delivered: 73.0 ml Contrast bolus adequate for pulmonary arteries and aorta. RENAL FUNCTION: GFR > 60. RADIATION DOSE: . LIMITATIONS: None. FINDINGS: LUNGS AND PLEURA: There is bibasilar predominant pulmonary fibrosis with irregular interst itial opacity, bronchiectasis, bronchiolectasis, and probable honeycombing. Mild centrilobular emphy sema. AORTA AND GREAT VESSELS: No aneurysm. Mixed calcific atherosclerosis. No evidence of dissection or penetrating ulceration. HEART: No pericardial effusion. Three-vessel coronary artery calcifications status post median sterno [place]. PULMONARY ARTERIES: No emboli visualized in the main pulmonary arteries or the segmental branches. HILAR AND MEDIASTINAL STRUCTURES: No identified masses or abnormal nodes. HARDWARE: None in the chest. UPPER ABDOMEN: See separate report of the CT of the abdomen. THYROID AND OTHER SOFT TISSUES: No masses. No adenopathy. BONES: No acute or significant finding. 3D MIPS: Confirm above findings. OTHER: No other significant finding. IMPRESSION: 1. No evidence of thoracic aortic dissection, aneurysm, or other acute aortic syndrome. 2. Moderate pulmonary fibrosis in a "possible UIP" pattern by ATS pulmonary fibrosis criteria. 3. Mild emphysema. 4. Coronary artery disease. COMMENT: Quality ID # [id number]: Final reports with documentation of one or more dose reduction techniques (e.g., Automated exposure control, adjustment of the mA and/or kV according to patient size, use of iterative reconstruction technique) TECHNICAL DOCUMENTATION: JOB ID: [id number] [employer]- All Rights Reserved Reading location - IP/workstation name: [email or web address]
--- NOTE | 2018-05-28 15:58 | RADIOLOGY REPORT (SQ) ---
EXAM DESCRIPTION: CTA ABDOMEN/PELVIS W WO COMPLETED DATE/TIME: 05/28/2018 3:36 pm REASON FOR STUDY: h/o AAA w abd pain COMPARISON: None. TECHNIQUE: CT scan of the abdominal aorta extending to the iliac bifurcation performed with intraven ous contrast using helical scanning technique with dynamic intravenous contrast injection. Images rev iewed with lung, soft tissue, and bone windows. Reconstructed coronal and sagittal MPR images reviewe d. All images stored on PACS. Advanced 3D imaging as volume rendering, MIPS, SSD performed? yes All CT scanners at this facility use dose modulation, iterative reconstruction, and/or weight based d osing when appropriate to reduce radiation dose to as low as reasonably achievable (ALARA). [facility]: Dose Right [facility]: CareDose [facility]: Dose Right [facility]: Teradose 4D [facility]: Relive CONTRAST TYPE AND DOSE: 75 mL Omnipaque 350 IV RENAL FUNCTION: GFR > 60. LIMITATIONS: None. FINDINGS: AORTA AND VESSELS: There is severe mixed calcific atherosclerosis of abdominal aorta with a focal infrarenal abdominal aortic aneurysm measuring 3.1 x 2.4 cm. No dissection. Renal arteries, SMA, celiac without stenosis. LUNG BASES: Please see separately dictated report of the chest. LIVER: There is an unusual, very irregular and heterogeneous enhancing lesion of the anterior liver a bout the falciform ligament (series 3, image 98). SPLEEN: Normal size. No focal lesions. PANCREAS: No masses. No significant calcifications. No adjacent inflammation or peripancreatic fluid collections. Pancreatic duct not dilated. GALLBLADDER: No identified stones by CT criteria. No inflammatory changes to suggest cholecystitis. ADRENAL GLANDS: No significant masses or asymmetry. RIGHT KIDNEY AND URETER: No mass, calculi or urinary tract obstruction. LEFT KIDNEY AND URETER: No mass, calculi or urinary tract obstruction. RETROPERITONEUM: No retroperitoneal adenopathy, hemorrhage or masses. BOWEL AND PERITONEAL CAVITY: No masses or inflammatory changes. No free fluid or peritoneal masses. APPENDIX: Normal. ABDOMINAL WALL: No masses. No hernias. BONY STRUCTURES: No significant or acute findings. 3-D IMAGING: Confirms the above findings. OTHER: No other significant finding. IMPRESSION: 1. There is severe mixed calcific atherosclerosis of abdominal aorta with a focal infrar enal abdominal aortic aneurysm measuring 3.1 x 2.4 cm. No evidence of dissection or other acute aort ic syndrome. 2. There is an unusual, very irregular and heterogeneous enhancing lesion of the anterior liver about the falciform ligament. This is of uncertain significance although potentially related to prior earl chi or trauma. Malignancy is a differential consideration. Recommend multiphasic contrast-enhanced MRI to further evaluate. TECHNICAL DOCUMENTATION: JOB ID: [id number] Quality ID # 436: Final reports with documentation of one or more dose reduction techniques (e.g., Au tomated exposure control, adjustment of the mA and/or kV according to patient size, use of iterative reconstruction technique) 2010 [employer]- All Rights Reserved Reading location - IP/workstation name: [email or web address]
[2018-05-28] MEDS ORDERED: LORAZEPAM INJ 2 MG/1 ML VIAL IV ONE (17:31)
[2018-05-28] MEDS ORDERED: FENTANYL CITRATE INJ/PF 100 MCG/2 ML AMPUL IV ONE ×2 (17:31→20:52)
--- NOTE | 2018-05-28 20:11 | RADIOLOGY REPORT (SQ) ---
EXAM DESCRIPTION: MRI ABDOMEN COMBO COMPLETED DATE/TIME: 05/28/2018 7:30 pm REASON FOR STUDY: ruq abd pain ? mass enlarged cbd COMPARISON: None. TECHNIQUE: Multiplanar multisequence imaging performed without and with contrast including sagittal, axial and coronal T2, axial T1, axial gradient fat sat T1, axial, sagittal and coronal fat sat T1 po st contrast. CONTRAST TYPE AND DOSE: 20 mL Dotarem. RENAL FUNCTION: Creatinine 1 GFR greater than 60 LIMITATIONS: None. FINDINGS: LIVER: There is low T1 high T2 signal intensity mass in the left lobe of the liver on both sides of the falciform ligament. This demonstrates peripheral enhancement. SPLEEN: Normal size. No focal lesions. PANCREAS: No masses. No adjacent inflammation or peripancreatic fluid collections. Pancreatic duct no t dilated. GALLBLADDER: No masses. No stones. No gallbladder wall thickening or pericholecystic fluid. ADRENAL GLANDS: No significant masses or asymmetry. RIGHT KIDNEY AND URETER: No masses. No hydronephrosis. LEFT KIDNEY AND URETER: No masses. No hydronephrosis. AORTA AND VESSELS: Mild aneurysm dilatation of the infrarenal abdominal aorta. RETROPERITONEUM: No retroperitoneal adenopathy, hemorrhage or masses. BOWEL: No visualized masses. No inflammation. No significant dilatation. ABDOMINAL WALL AND PERITONEUM: No hernias. No free fluid. BONES: No acute or significant findings. OTHER: No other significant finding. IMPRESSION: Irregular lesion in the left lobe of the liver demonstrate characteristics of hemangioma , but in retrospect when the abdominal ultrasound is reviewed, this does not have the typical appeara nce of a hemangioma. TECHNICAL DOCUMENTATION: JOB ID: [id number] [employer]- All Rights Reserved Reading location - IP/workstation name: [email or web address]
[2018-05-28] MEDS ORDERED: HYDROCODONE/ACETAMINOPHEN 5-325 MG (6 TAB/ER DISP) PO PRN (21:13)
[2018-05-28 22:00] VITALS: BP 129/91
--- NOTE | 2018-05-28 23:08 | EKG REPORT ---
SEVERITY:- BORDERLINE ECG - SINUS RHYTHM BORDERLINE T ABNORMALITIES, INFERIOR LEADS : Confirmed by: Susana Owens 28-May-2018 23:07:20
--- NOTE | 2018-05-28 23:08 | EKG REPORT ---
SEVERITY:- ABNORMAL ECG - SINUS RHYTHM PROBABLE LEFT ATRIAL ABNORMALITY ABNRM R PROG, CONSIDER ASMI OR LEAD PLACEMENT : Confirmed by: Susana Owens 28-May-2018 23:07:15
== END 2018-05-28 22:00 | disposition home or self-care (01) ==
LOC: ER 11:25
DX: R16.0 Hepatomegaly, not elsewhere classified (principal); R10.11 Right upper quadrant pain; R10.9 Unspecified abdominal pain; R05 Cough; R06.7 Sneezing; J44.9 Chronic obstructive pulmonary disease, unspecified; I25.10 Atherosclerotic heart disease of native coronary artery without angina pectoris; I10 Essential (primary) hypertension; Z87.891 Personal history of nicotine dependence
CPT/HCPCS: 93005; 96376; 99284; 96374; 96375; 36415; 82553; 82550; 83690; 85025; 85610; 85730; 80053; 81001; 84484; 74183; 71101; 76700; 93976; 71275; 74174; 93010; A9576; J3010; J2270; J2405

== ENCOUNTER 2018-08-04 08:35 | Day surgery (SDC) | payer OTHER, MEDICARE ==
[2018-08-04 09:29] LABS: HEMATOCRIT 44.1 % (37.9-51.0); HEMOGLOBIN 15.5 g/dL (13.5-17.0); MEAN CORPUSCULAR HEMOGLOBIN 33.3 pg (27.0-33.4); MEAN CORPUSCULAR HGB CONC 35.1 g/dL (32.0-36.0); MEAN CORPUSCULAR VOLUME 95 fl (80-97); PLATELET COUNT 222 10^3/uL (150-450); RED BLOOD COUNT 4.65 10^6/uL (4.35-5.55); RED CELL DISTRIBUTION WIDTH 13.4 % (11.5-14.0)
[2018-08-04 09:37] LABS: INTERNATIONAL RATION (INR) 1.02; PROTHROMBIN TIME 13.9 SEC (11.4-15.4)
[2018-08-04 09:38] LABS: PARTIAL THROMBOPLASTIN TIME 30.2 SEC (23.5-35.8)
[2018-08-04 09:56] LABS: BLOOD UREA NITROGEN 19 mg/dL (7-20)
[2018-08-04] MEDS ORDERED: LIDOCAINE 1% INJ-PF (10 MG/ML) 30 ML SDV ONE (11:20)
[2018-08-04] MEDS ORDERED: FENTANYL CITRATE INJ/PF 100 MCG/2 ML AMPUL ONE (11:20)
[2018-08-04] MEDS ORDERED: MIDAZOLAM 2 MG/2 ML INJ ONE ×2 (11:20→11:55)
--- NOTE | 2018-08-04 12:26 | RADIOLOGY REPORT (SQ) ---
EXAM DESCRIPTION: CT BIOPSY LIVER; CT NEEDLE PLACEMENT COMPLETED DATE/TIME: 08/04/2018 12:15 pm REASON FOR STUDY: ABNORMAL FINDIGNS ON DIAGNOSTIC IMAGING; ABNORMAL FINDIGNS ON DIAGNOSTIC IMAGING, LIVER BIOPSY R93.5 ABN FINDINGS ON DX IMAGING OF [facility] RETROPE R68.81 EARLY SATIETY COMPARISON: MRI dated 05/28/2018, CT abdomen dated 05/28/2018 FLUORO TIME: 8.0 seconds 48 images saved to PACS. LIMITATIONS: None. PROCEDURE: After obtaining informed consent, the patient was brought to the CT suite and was placed supine on the CT gurney. The patient was prepped and draped in the usual sterile fashion . Axial piotr ges were obtained for targeting of thehepatic mass. An appropriate access site was selected. IV cons cious sedation was administered and physician direction by the registered nurse using 3.0 milligrams of Versed and 75 micrograms of fentanyl. Physiologic monitoring was provided before, during, and afte r sedation. The total sedation time was 20 minutes. Documentation face to face time, the performing proceduralist, spent monitoring the patient: 5minutes . Using CT fluoroscopic guidance and an 18 gauge coaxial system multiple core biopsies were obtained fr om the mass in the anterior aspect of the right lobe of liver which extends into the left lobe. Ther e were no immediate complications. IMPRESSION: Successful CT-guided biopsy of the hepatic mass. There were no complications. COMMENT: Patient medication list reviewed:Yes- Quality ID# 130:Eligible professional attests to docu menting in the medical record they obtained, updated, or reviewed the patient's current medications. Quality ID #76: The patient was prepped and draped using maximum sterile barrier technique including cap, mask, sterile gown, sterile gloves, a large sterile sheet, hand hygiene, and 2% Chlorhexidine fo r cutaneous antisepsis. When ultrasound is used, sterile ultrasound techniques are followed requiring sterile gel and sterile probes. Quality ID 145: Final reports for procedures using fluoroscopy that document radiation exposure catalino hakan, or exposure time and number of fluorographic images (if radiation exposure indices are not avail able) Quality ID# 436: Final reports with documentation of one or more dose reduction techniques (e.g., Aut omated exposure control, adjustment of the mA and/or kV according to patient size, use of iterative r econstruction technique) TECHNICAL DOCUMENTATION: JOB ID: [id number] [employer]- All Rights Reserved rev-08/27 Reading location - IP/workstation name: [email or web address]
[2018-08-04 16:43] VITALS: BP 128/83
== END 2018-08-04 16:40 | disposition home or self-care (01) ==
LOC: RAD 08:35
PROVIDERS: ATTEND Internal Medicine Gastroenterology
DX: K75.9 Inflammatory liver disease, unspecified (principal); K74.0 Hepatic fibrosis; R93.5 Abnormal findings on diagnostic imaging of other abdominal regions, including retroperitoneum; R68.81 Early satiety; I10 Essential (primary) hypertension; I25.10 Atherosclerotic heart disease of native coronary artery without angina pectoris; E78.5 Hyperlipidemia, unspecified; R06.00 Dyspnea, unspecified; Z79.51 Long term (current) use of inhaled steroids; Z79.82 Long term (current) use of aspirin; Z79.899 Other long term (current) drug therapy; Z88.8 Allergy status to other drugs, medicaments and biological substances; Z88.0 Allergy status to penicillin
CPT/HCPCS: 36415; 84520; 82565; 85027; 85610; 85730; 88307 ×2; 88313 ×2; 77012; 47000; J2250; J3010; J3490